=== PATIENT | male | born 1945 | race Hispanic/Latino ===

== ENCOUNTER 2019-10-17 08:03 | Outpatient (CLI) | payer MEDICARE, MEDICAID ==
--- NOTE | 2019-10-17 09:30 | ULT ---
ULTRASOUND ABDOMEN: Date: 10/17/2019 HISTORY: Abdominal pain, hepatomegaly. FINDINGS: The liver measures 13.5 cm in length with increased echogenicity consistent with fatty infiltration. No focal mass or abnormal biliary ductal dilatation is seen. The patient is post cholecystectomy. The common duct measures 5.0 mm in diameter. The spleen, left kidney, and visualized portions of the hurt creas, aorta, and IVC are unremarkable. There is a 2.1 x 1.9 x 1.7 cm echogenic mass arising from the superior medial aspect of the right kidney. No free fluid is seen. IMPRESSION: 1. Fatty liver. 2. Right renal mass. Further evaluation with a CT scan of the abdomen and pelvis (with and without I V contrast using renal mass protocol) is recommended. POS: [facility]
== END 2019-10-17 08:04 | disposition home or self-care (01) ==
LOC: BICULT 08:03
PROVIDERS: ATTEND Family Medicine
DX: R10.9 Unspecified abdominal pain (principal); R16.0 Hepatomegaly, not elsewhere classified; N28.89 Other specified disorders of kidney and ureter; K76.0 Fatty (change of) liver, not elsewhere classified
CPT/HCPCS: 93975

== ENCOUNTER 2019-11-28 12:52 | Outpatient (CLI) | payer MEDICARE, MEDICAID ==
[~2019-11-28 12:52] MED LIST: Iopamidol-370 76% 500 ML 1 ML ONE
[2019-11-28 13:32] LABS: Estimated GFR-MDRD - POC Greater than 90
--- NOTE | 2019-11-28 20:55 | CT ---
CT ABDOMEN AND PELVIS WITH AND WITHOUT CONTRAST: 11/28/19 Postcontrast images were obtained in the portal venous phase and delayed venous phase. INDICATION: Right renal mass. COMPARISON: Comparison made to ultrasound exam of 10/17/19. That exam revealed a hyperechoic mass superior right k idney. FINDINGS: Review of kidneys in all phases shows an exophytic mass arising from the superolateral right kidney. This mass measures up to 2 cm. It does exhibit diffuse enhancement and is suspicious for neoplasm. There is a low density mass in the medial right renal cortex measuring approximately 1.0 cm more cons istent with a small cyst. There are at least two low density cystic lesions in the left kidney both measuring 1 to 1.5 cm. Ther e is a tiny low density focus in the medial left renal cortex which is subcentimeter and difficult to characterize but probably representing tiny cysts. No evidence of hydronephrosis. The collecting structures opacify on the delayed sequence and appear u nremarkable. Urinary bladder is mildly distended. There is mild urinary bladder wall thickening. Ther e is moderate prostatic hypertrophy which does impinge on the floor of the bladder. Lung bonilla are clear. Liver, spleen, and pancreas unremarkable. Stomach and duodenum unremarkable. Adrenal glands normal. Bowel loops unremarkable. Aorta shows atherosclerotic change. 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 No aneurysmal dilatation. Osseous structures unremarkable. IMPRESSION: 1. Suspicious enhancing mass involving the superolateral right kidney measuring 2.0 cm. 2. There are other low density lesions in both kidneys, most consistent with small cysts as desc ribed above. 3. Prostatic hypertrophy with nonspecific urinary bladder wall thickening. 4. Atherosclerotic changes involving the abdominal aorta without aneurysm. 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 This is filled with thrombus with no evidence of opacified false lumen. POS: [facility]
== END 2019-11-28 12:53 | disposition home or self-care (01) ==
LOC: BICCT 12:52
PROVIDERS: ATTEND Family Medicine
DX: N28.89 Other specified disorders of kidney and ureter (principal); N40.0 Benign prostatic hyperplasia without lower urinary tract symptoms; N32.89 Other specified disorders of bladder; I70.0 Atherosclerosis of aorta; I71.02 Dissection of abdominal aorta; N28.9 Disorder of kidney and ureter, unspecified
CPT/HCPCS: 74178; 82565; Q9967

== ENCOUNTER 2019-12-07 08:55 | Day surgery (SDC) | payer MEDICARE, MEDICAID ==
[2019-12-06 15:00] VITALS: BMI 24.7
[~2019-12-07 08:55] MED LIST changes: -Iopamidol-370 76% 500 ML 1 ML ONE; +Prevnar 13-Val Conj/PF 0.5 ML SYRINGE IM ONE
[2019-12-07 09:47] LABS: PTT 31.5 sec (22.9-36.1); Prothrombin Time 12.8 sec (12.0-14.7)
[2019-12-07] MEDS ORDERED: Midazolam HCl 2 mg/2 ml Vial ONE (10:43)
[2019-12-07] MEDS ORDERED: Fentanyl 100 MCG/2 ML VIAL ONE (10:43)
[2019-12-07] MEDS ORDERED: Sodium Bicarbonate 2.5 MEQ/5 ML VIAL ONE (10:44)
[2019-12-07 11:57] VITALS: BP 125/62; TEMP 97.8
--- NOTE | 2019-12-07 12:46 | CT ---
EXAM: CT Limited Exam PROVIDED CLINICAL HISTORY: Right renal mass. Biopsy of mass was requested. COMPARISON: CT abdomen and pelvis on 11/28/2019 FINDINGS: Patient presented for biopsy of a superior pole right renal mass. After the procedure including risks and complications were explained to the patient, the patient was placed on the CT scan table in the prone position with grid localizer in place. Limited noncontrasted CT images were obtained throug h the level of the right kidney. The mass in the superior pole right kidney is localized, but the posterior lung base overlies this region and precludes safe route of needle placement followed by of the superior pole right renal mass. The colon and liver are located laterally precluding biopsy from lateral approach. At this time, the procedure was terminated. These findings were discussed with the patient as well as the patient's daughter. Findings were also discussed with Dr. Gonzalez at this time. Remainder the findings within the abdomen were described on prior postcontrast CT exam. IMPRESSION: Superior pole right renal mass is localized. Overlying lung parenchyma posteriorly as well as liver a nd colon laterally preclude safe route of biopsy. Findings were discussed with the patient as well as Dr. Gonzalez postprocedure.
== END 2019-12-07 11:20 | disposition home or self-care (01) ==
LOC: CT 08:55
PROVIDERS: ATTEND Urology
DX: D41.01 Neoplasm of uncertain behavior of right kidney (principal); E11.9 Type 2 diabetes mellitus without complications; K21.9 Gastro-esophageal reflux disease without esophagitis; N40.0 Benign prostatic hyperplasia without lower urinary tract symptoms; E78.5 Hyperlipidemia, unspecified; Z53.8 Procedure and treatment not carried out for other reasons; Z87.891 Personal history of nicotine dependence; Z79.4 Long term (current) use of insulin; Z79.899 Other long term (current) drug therapy; Z98.84 Bariatric surgery status
CPT/HCPCS: 36415; 36416; 76380; 85610; 85730; J2250; J3010

== ENCOUNTER 2020-06-06 08:04 | Outpatient (CLI) | payer MEDICARE, MEDICAID ==
[2020-06-06 08:31] LABS: Estimated GFR-MDRD - POC Greater than 90
[2020-06-06] MEDS ORDERED: Iopamidol 370 76% 100 ML VIAL ONE (13:10)
== END 2020-06-06 08:05 | disposition home or self-care (01) ==
LOC: BICCT 08:04
PROVIDERS: ATTEND Urology
DX: D41.01 Neoplasm of uncertain behavior of right kidney (principal)
CPT/HCPCS: 74170; 82565; Q9967

== ENCOUNTER 2020-10-25 12:06 | Emergency (ER) | payer MEDICARE, MEDICAID ==
[~2020-10-25 12:06] MED LIST changes: +Iopamidol-370 76% 500 ML 1 ML ONE; -Prevnar 13-Val Conj/PF 0.5 ML SYRINGE IM ONE
[2020-10-25] MEDS ORDERED: Ondansetron ODT 4 MG TAB ONE (13:19)
[2020-10-25 13:33] LABS: #Lymphocytes 1.6 thou/uL (1.20-3.40); #Monocytes 0.6 thou/uL (0.11-0.59); #Neutrophils 7.2 thou/uL (1.40-6.50); %Basophils 0.1 % (0.0-1.0); %Eosinophils 0.3 % (0.0-10.0); %Lymphocytes 17.1 % (21.0-51.0); %Monocytes 6.2 % (0.0-10.0); %Neutrophils 76.3 % (42.0-75.0); Hemoglobin 14.4 g/dL (14.0-18.0); Mean Corpuscular HGB CONC 34.6 g/dL (32.0-36.0); Mean Corpuscular Hemoglobin 33.7 pg (27.0-31.0); Mean Corpuscular Volume 97.3 fL (78.0-98.0); Mean Platelet Volume 7.2 fL (7.4-10.4); Platelet Count 286 thou/uL (130-400); RBC Distribution Width 13.2 % (11.5-14.5); Red Blood Cell (RBC) Count 4.28 mill/uL (4.70-6.10); White Blood Cell (WBC) Count 9.4 thou/uL (4.8-10.8)
[2020-10-25 13:49] LABS: ALT (SGPT) 22 U/L (8-55); AST (SGOT) 16 U/L (5-34); Albumin 3.9 g/dL (3.4-4.8); Alkaline Phosphatase 119 U/L (40-110); Anion Gap 16 mmol/L (10-20); BUN (Urea Nitrogen) 15 mg/dL (8.4-25.7); Bilirubin, Total 1.2 mg/dL (0.2-1.2); Calc. Creatinine Clearance 0 mL/min (70-130); Carbon Dioxide 23 mmol/L (23-31); Chloride 101 mmol/L (98-107); Globulin 2.6 g/dL (2.4-3.5); Glucose 290 mg/dL (83-110); Lipase 12 U/L (8-78); Potassium 5.1 mmol/L (3.5-5.1); Protein, Total 6.5 g/dL (5.8-8.1); Sodium 135 mmol/L (136-145)
[2020-10-25] MEDS ORDERED: Lidocaine Viscous Sol 2% 15 ml UD Cup ONE (16:36)
[2020-10-25] MEDS ORDERED: Mag-Al 1200 mg/1200 mg/30 ML UDCUP ONE (16:36)
== END 2020-10-25 18:29 | disposition home or self-care (01) ==
LOC: ERS 12:06
DX: K20.90 Esophagitis, unspecified without bleeding (principal); E11.9 Type 2 diabetes mellitus without complications; F17.290 Nicotine dependence, other tobacco product, uncomplicated
CPT/HCPCS: 36415; 74177; 80053; 82010; 83690; 84484; 85025; 93005; Q0162; Q9967

== ENCOUNTER 2020-10-25 23:53 | Emergency (ER) | payer MEDICARE, MEDICAID ==
[2020-10-26] MEDS ORDERED: Ondansetron ODT 4 MG TAB ONE (00:18)
[2020-10-26] MEDS ORDERED: Lidocaine Viscous Sol 2% 15 ml UD Cup ONE (00:20)
[2020-10-26] MEDS ORDERED: Mag-Al 1200 mg/1200 mg/30 ML UDCUP ONE (00:20)
[2020-10-26] MEDS ORDERED: Famotidine 20 MG TAB ONE (00:41)
[2020-10-26] MEDS ORDERED: Ondansetron PF 4 MG/2 ML Vial ONE (01:34)
[2020-10-26] MEDS ORDERED: Morphine 2 MG/ML VIAL ONE (01:56)
[2020-10-26 02:23] LABS: #Lymphocytes 2.2 thou/uL (1.20-3.40); #Monocytes 1.1 thou/uL (0.11-0.59); #Neutrophils 8.5 thou/uL (1.40-6.50); %Basophils 0.3 % (0.0-1.0); %Eosinophils 0.3 % (0.0-10.0); %Lymphocytes 18.4 % (21.0-51.0); Hemoglobin 14.5 g/dL (14.0-18.0); Mean Corpuscular Hemoglobin 32.7 pg (27.0-31.0); Mean Corpuscular Volume 96.2 fL (78.0-98.0); Mean Platelet Volume 7.2 fL (7.4-10.4); Platelet Count 280 thou/uL (130-400); Red Blood Cell (RBC) Count 4.43 mill/uL (4.70-6.10); White Blood Cell (WBC) Count 11.8 thou/uL (4.8-10.8)
[2020-10-26 03:06] LABS: ALT (SGPT) 22 U/L (8-55); AST (SGOT) 15 U/L (5-34); Albumin 3.7 g/dL (3.4-4.8); Alkaline Phosphatase 121 U/L (40-110); Anion Gap 16 mmol/L (10-20); BUN (Urea Nitrogen) 17 mg/dL (8.4-25.7); Bilirubin, Total 1.5 mg/dL (0.2-1.2); Calc. Creatinine Clearance 0 mL/min (70-130); Calcium 8.9 mg/dL (7.8-10.44); Carbon Dioxide 29 mmol/L (23-31); Chloride 96 mmol/L (98-107); Globulin 2.7 g/dL (2.4-3.5); Glucose 214 mg/dL (83-110); Potassium 4.1 mmol/L (3.5-5.1); Protein, Total 6.4 g/dL (5.8-8.1); Sodium 137 mmol/L (136-145)
== END 2020-10-26 03:25 | disposition home or self-care (01) ==
LOC: ERS 23:53
DX: R10.13 Epigastric pain (principal); R11.2 Nausea with vomiting, unspecified; E11.9 Type 2 diabetes mellitus without complications; F17.290 Nicotine dependence, other tobacco product, uncomplicated; Z79.899 Other long term (current) drug therapy; K20.90 Esophagitis, unspecified without bleeding
CPT/HCPCS: 71045; 74177; 80053; 82010; 83690; 84484; 85025; 93005 ×2; 96372; 96374; 96375; 99284; J2270; 36415; J0500; J2405; Q0162; Q9967

== ENCOUNTER 2020-12-02 10:46 | Inpatient (IN) | payer MEDICARE, MEDICAID ==
[2020-12-02 11:47] LABS: ALT (SGPT) 20 U/L (8-55); AST (SGOT) 24 U/L (5-34); Albumin 2.6 g/dL (3.4-4.8); Alkaline Phosphatase 67 U/L (40-110); Anion Gap 13 mmol/L (10-20); BUN (Urea Nitrogen) 21 mg/dL (8.4-25.7); Bilirubin, Total 1.5 mg/dL (0.2-1.2); Calc. Creatinine Clearance 0 mL/min (70-130); Carbon Dioxide 19 mmol/L (23-31); Chloride 109 mmol/L (98-107); Globulin 2.2 g/dL (2.4-3.5); Glucose 133 mg/dL (83-110); Potassium 3.6 mmol/L (3.5-5.1); Protein, Total 4.8 g/dL (5.8-8.1); Sodium 137 mmol/L (136-145)
[2020-12-02 12:03] LABS: SARS-CoV-2 NAA Rapid Test Not Detected (NotDetected)
[2020-12-02 12:07] LABS: Band 39 % (5-11); Hemoglobin 10.3 g/dL (14.0-18.0); Lymphocytes 14 % (21-51); MDiff Complete? YES; Mean Corpuscular HGB CONC 34.3 g/dL (32.0-36.0); Mean Corpuscular Hemoglobin 34.3 pg (27.0-31.0); Mean Platelet Volume 7.3 fL (7.4-10.4); Metamyelocyte 12 % (0-0); Monocytes 7 % (0-10); Neutrophil 28 % (42-75); Platelet Count 248 thou/uL (130-400); Platelet Morphology Comment Appears Adequate; Polychromasia SLIGHT = 2-3 cells (100X) (0-2/hpf); RBC Distribution Width 15.1 % (11.5-14.5); Red Blood Cell (RBC) Count 3.01 mill/uL (4.70-6.10); Vacuoles SLIGHT; White Blood Cell (WBC) Count 9.3 thou/uL (4.8-10.8)
[2020-12-02] MEDS ORDERED: cefTRIAXone\\ROCEPHIN 2 GM VIAL ONE (12:09)
[2020-12-02] MEDS ORDERED: Vancomycin 1 GM/200 ML BAG ONE (13:23)
[2020-12-02] MEDS ORDERED: Norepinephrine 8 MG/0.9% NS 250 ML ONE ×2 (14:27→21:22)
[2020-12-02] MEDS ORDERED: Ondansetron PF 4 MG/2 ML Vial IVP PRN (15:24)
[2020-12-02] MEDS ORDERED: Acetaminophen 325 MG TAB PO PRN (15:24)
[2020-12-02] MEDS ORDERED: Dextrose 50% Abboject 50 ML SYRINGE SLOW IVP PRN (15:28)
[2020-12-02] MEDS ORDERED: Dextrose 5% in Water 1,000 ML IV PRN (15:28)
[2020-12-02 15:29] LABS: Lactic Acid 7.5 mmol/L (0.5-2.2)
[2020-12-02 15:31] LABS: Troponin I Less than 0.010 ng/mL (< 0.028)
[2020-12-02] MEDS ORDERED: CEFEPIME IVPB PRN (16:14)
[2020-12-02] MEDS ORDERED: Azithromycin 500 MG in Sodium Chloride 0.9% 250 ML 250 ML IVPB SCH (17:00)
[2020-12-02] MEDS ORDERED: Cefepime 2 GM in Sodium Chloride 0.9% 100 ML IVPB SCH (18:00)
[2020-12-02 18:40] LABS: Troponin I 0.055 ng/mL (< 0.028)
[2020-12-02] MEDS ORDERED: Norepinephrine 4 MG/4 ML VIAL ONE (21:17)
[2020-12-02 21:49] LABS: Troponin I 0.166 ng/mL (< 0.028)
[2020-12-02] MEDS: Lantus 1000 UNITS/10 ML VIAL SC SCH (23:01)
[2020-12-02] MEDS: Simvastatin 5 MG TAB PO SCH (23:02)
[2020-12-03] MEDS: Sodium Chloride 0.9% 1,000 ML IV SCH ×3 (04:04→10:35)
[2020-12-03 04:31] LABS: Iron Binding Capacity, Total 159 mcg/dL (261-462)
[2020-12-03 04:34] LABS: ALT (SGPT) 19 U/L (8-55); AST (SGOT) 25 U/L (5-34); Albumin 2.6 g/dL (3.4-4.8); Alkaline Phosphatase 69 U/L (40-110); Anion Gap 14 mmol/L (10-20); BUN (Urea Nitrogen) 25 mg/dL (8.4-25.7); Bilirubin, Total 0.7 mg/dL (0.2-1.2); Calc. Creatinine Clearance 63 mL/min (70-130); Calcium 7.7 mg/dL (7.8-10.44); Carbon Dioxide 17 mmol/L (23-31); Chloride 109 mmol/L (98-107); Globulin 2.5 g/dL (2.4-3.5); Glucose 224 mg/dL (83-110); Iron Less than 8 ug/dL (65-175); Iron Binding Capacity, Total 158 mcg/dL (261-462); Protein, Total 5.1 g/dL (5.8-8.1); Sodium 136 mmol/L (136-145)
[2020-12-03] MEDS: Cefepime 2 GM in Sodium Chloride 0.9% 100 ML IVPB SCH ×2 (04:49→04:50)
[2020-12-03 04:55] LABS: Hemoglobin 10.9 g/dL (14.0-18.0); Mean Corpuscular HGB CONC 34.2 g/dL (32.0-36.0); Mean Corpuscular Hemoglobin 34.2 pg (27.0-31.0); Mean Corpuscular Volume 99.9 fL (78.0-98.0); Mean Platelet Volume 7.7 fL (7.4-10.4); Platelet Count 244 thou/uL (130-400); RBC Distribution Width 15.3 % (11.5-14.5); Red Blood Cell (RBC) Count 3.17 mill/uL (4.70-6.10); White Blood Cell (WBC) Count 32.4 thou/uL (4.8-10.8)
[2020-12-03] MEDS: Norepinephrine 8 MG/0.9% NS 250 ML IVPB SCH ×2 (05:46→11:57)
[2020-12-03] MEDS ORDERED: Azithromycin 500 MG in Sodium Chloride 0.9% 250 ML 250 ML IVPB SCH (06:00)
[2020-12-03 06:27] LABS: Anisocytosis SLIGHT = 6-15 cells (100X) (0-5/hpf); Band 37 % (5-11); Lymphocytes 8 % (21-51); MDiff Complete? YES; Metamyelocyte 21 % (0-0); Monocytes 4 % (0-10); Myelocyte 13 % (0-0); Neutrophil 17 % (42-75)
[2020-12-03 06:30] LABS: Iron Less than 8 ug/dL (65-175)
[2020-12-03] MEDS: Enoxaparin Sodium 40 MG/0.4 ML SYRINGE SC SCH (09:45)
[2020-12-03] MEDS: HumaLOG 300 UNITS/3 ML VIAL SC PRN ×4 (09:48→20:14)
[2020-12-03] MEDS: Lantus 1000 UNITS/10 ML VIAL SC SCH ×2 (09:49→20:15)
[2020-12-03] MEDS: Linezolid 600 MG in Premix Bag 1 BAG IVPB SCH ×2 (10:34→20:14)
[2020-12-03] MEDS: methylPREDNISolone Sod Succ 40 MG VIAL IVP SCH ×2 (11:56→17:11)
[2020-12-03] MEDS ORDERED: Vancomycin 1 GM in Premix Bag 1 BAG IVPB SCH (13:00)
[2020-12-03] MEDS: Simvastatin 5 MG TAB PO SCH (20:14)
[2020-12-04] MEDS: methylPREDNISolone Sod Succ 40 MG VIAL IVP SCH ×4 (00:04→19:12)
[2020-12-04] MEDS: Cefepime 2 GM in Sodium Chloride 0.9% 100 ML IVPB SCH (05:07)
[2020-12-04 06:06] LABS: ALT (SGPT) 16 U/L (8-55); AST (SGOT) 22 U/L (5-34); Albumin 2.6 g/dL (3.4-4.8); Alkaline Phosphatase 76 U/L (40-110); Anion Gap 13 mmol/L (10-20); BUN (Urea Nitrogen) 13 mg/dL (8.4-25.7); Bilirubin, Total 0.9 mg/dL (0.2-1.2); Calc. Creatinine Clearance 87 mL/min (70-130); Calcium 7.7 mg/dL (7.8-10.44); Carbon Dioxide 18 mmol/L (23-31); Chloride 109 mmol/L (98-107); Globulin 2.4 g/dL (2.4-3.5); Glucose 230 mg/dL (83-110); Potassium 3.3 mmol/L (3.5-5.1); Sodium 137 mmol/L (136-145)
[2020-12-04] MEDS: HumaLOG 300 UNITS/3 ML VIAL SC PRN ×4 (06:09→20:09)
[2020-12-04 06:12] LABS: Hemoglobin 9.1 g/dL (14.0-18.0); Mean Corpuscular HGB CONC 32.8 g/dL (32.0-36.0); Mean Corpuscular Hemoglobin 32.5 pg (27.0-31.0); Mean Corpuscular Volume 98.9 fL (78.0-98.0); Mean Platelet Volume 7.5 fL (7.4-10.4); Platelet Count 168 thou/uL (130-400); RBC Distribution Width 15.4 % (11.5-14.5); White Blood Cell (WBC) Count 30.4 thou/uL (4.8-10.8)
[2020-12-04 06:38] LABS: Band 51 % (5-11); Lymphocytes 2 % (21-51); MDiff Complete? YES; Neutrophil 47 % (42-75); Platelet Morphology Comment Appears Adequate; Polychromasia SLIGHT = 2-3 cells (100X) (0-2/hpf)
[2020-12-04] MEDS ORDERED: Potassium Chloride 20 MEQ TAB PO SCH (08:30)
[2020-12-04] MEDS: Enoxaparin Sodium 40 MG/0.4 ML SYRINGE SC SCH (08:53)
[2020-12-04] MEDS: Folic Acid 1 MG TAB PO SCH (08:54)
[2020-12-04] MEDS: Lantus 1000 UNITS/10 ML VIAL SC SCH ×2 (08:56→20:08)
[2020-12-04] MEDS: Linezolid 600 MG in Premix Bag 1 BAG IVPB SCH ×2 (08:56→20:08)
[2020-12-04 11:52] LABS: SARS-CoV-2 NAA Rapid Test Not Detected (NotDetected)
[2020-12-04] MEDS: Simvastatin 5 MG TAB PO SCH (20:08)
[2020-12-05] MEDS: methylPREDNISolone Sod Succ 40 MG VIAL IVP SCH ×5 (00:26→21:42)
[2020-12-05] MEDS: HumaLOG 300 UNITS/3 ML VIAL SC PRN ×4 (05:17→22:11)
[2020-12-05] MEDS: Cefepime 2 GM in Sodium Chloride 0.9% 100 ML IVPB SCH ×2 (05:17→17:14)
[2020-12-05 05:28] LABS: Hemoglobin 10.6 g/dL (14.0-18.0); Mean Corpuscular HGB CONC 34.5 g/dL (32.0-36.0); Mean Corpuscular Hemoglobin 33.5 pg (27.0-31.0); Mean Corpuscular Volume 97.1 fL (78.0-98.0); Mean Platelet Volume 7.8 fL (7.4-10.4); Platelet Count 184 thou/uL (130-400); RBC Distribution Width 15.1 % (11.5-14.5); Red Blood Cell (RBC) Count 3.17 mill/uL (4.70-6.10)
[2020-12-05 05:50] LABS: ALT (SGPT) 18 U/L (8-55); AST (SGOT) 20 U/L (5-34); Albumin 2.8 g/dL (3.4-4.8); Alkaline Phosphatase 102 U/L (40-110); Anion Gap 10 mmol/L (10-20); BUN (Urea Nitrogen) 12 mg/dL (8.4-25.7); Calc. Creatinine Clearance 93 mL/min (70-130); Calcium 8.4 mg/dL (7.8-10.44); Carbon Dioxide 25 mmol/L (23-31); Chloride 108 mmol/L (98-107); Globulin 2.8 g/dL (2.4-3.5); Glucose 193 mg/dL (83-110); Protein, Total 5.6 g/dL (5.8-8.1); Sodium 140 mmol/L (136-145)
[2020-12-05 07:18] LABS: Band 17 % (5-11); Lymphocytes 2 % (21-51); MDiff Complete? YES; Monocytes 1 % (0-10); Neutrophil 80 % (42-75); Platelet Morphology Comment Appears Adequate; Polychromasia SLIGHT = 2-3 cells (100X) (0-2/hpf)
[2020-12-05] MEDS: Enoxaparin Sodium 40 MG/0.4 ML SYRINGE SC SCH (08:57)
[2020-12-05] MEDS: Lantus 1000 UNITS/10 ML VIAL SC SCH ×2 (08:58→21:42)
[2020-12-05] MEDS: Folic Acid 1 MG TAB PO SCH (08:58)
[2020-12-05] MEDS: Linezolid 600 MG in Premix Bag 1 BAG IVPB SCH ×2 (08:58→21:41)
[2020-12-05] MEDS: Potassium Chloride 20 MEQ TAB PO SCH ×2 (09:00→12:36)
[2020-12-05] MEDS ORDERED: Furosemide 20 MG/2 ML VIAL SLOW IVP SCH ×2 (13:30→18:00)
[2020-12-05 15:35] LABS: Anion Gap 10 mmol/L (10-20); BUN (Urea Nitrogen) 13 mg/dL (8.4-25.7); Calc. Creatinine Clearance 95 mL/min (70-130); Calcium 8.6 mg/dL (7.8-10.44); Carbon Dioxide 26 mmol/L (23-31); Chloride 105 mmol/L (98-107); Glucose 179 mg/dL (83-110); Magnesium 1.4 mg/dL (1.6-2.6); Potassium 3.4 mmol/L (3.5-5.1); Sodium 138 mmol/L (136-145)
[2020-12-05] MEDS: Simvastatin 5 MG TAB PO SCH (21:42)
[2020-12-06] MEDS: Cefepime 2 GM in Sodium Chloride 0.9% 100 ML IVPB SCH (04:57)
[2020-12-06 05:09] LABS: Anion Gap 10 mmol/L (10-20); BUN (Urea Nitrogen) 17 mg/dL (8.4-25.7); Calc. Creatinine Clearance 84 mL/min (70-130); Calcium 8.2 mg/dL (7.8-10.44); Carbon Dioxide 27 mmol/L (23-31); Chloride 101 mmol/L (98-107); Glucose 282 mg/dL (83-110); Magnesium 1.3 mg/dL (1.6-2.6); Sodium 135 mmol/L (136-145)
[2020-12-06 05:13] LABS: Band 6 % (5-11); Hemoglobin 10.4 g/dL (14.0-18.0); Hypochromia SLIGHT = 6-15 cells (100X) (0-5/hpf); Lymphocytes 5 % (21-51); MDiff Complete? YES; Mean Corpuscular HGB CONC 36.4 g/dL (32.0-36.0); Mean Corpuscular Hemoglobin 35.1 pg (27.0-31.0); Mean Corpuscular Volume 96.3 fL (78.0-98.0); Mean Platelet Volume 8.1 fL (7.4-10.4); Monocytes 6 % (0-10); Neutrophil 83 % (42-75); Platelet Count 141 thou/uL (130-400); Platelet Morphology Comment Appears Adequate; RBC Distribution Width 15.5 % (11.5-14.5); Red Blood Cell (RBC) Count 2.98 mill/uL (4.70-6.10); White Blood Cell (WBC) Count 7.8 thou/uL (4.8-10.8)
[2020-12-06 05:15] LABS: Potassium 2.9 mmol/L (3.5-5.1)
[2020-12-06] MEDS ORDERED: Electrolyte Replacement Protocol FS PRN (05:30)
[2020-12-06] MEDS: Potassium Chloride 40 MEQ in Premix Bag 1 BAG IVPB SCH ×2 (05:33→10:07)
[2020-12-06] MEDS ORDERED: Magnesium Sulfate 4 GM in Sodium Chloride 0.9% 250 ML 250 ML IVPB SCH (06:00)
[2020-12-06] MEDS ORDERED: Furosemide 20 MG/2 ML VIAL SLOW IVP SCH (06:00)
[2020-12-06] MEDS: HumaLOG 300 UNITS/3 ML VIAL SC PRN ×4 (06:29→20:12)
[2020-12-06 06:43] VITALS: BMI 16.5
[2020-12-06] MEDS: Enoxaparin Sodium 40 MG/0.4 ML SYRINGE SC SCH (10:02)
[2020-12-06] MEDS: Linezolid 600 MG in Premix Bag 1 BAG IVPB SCH ×2 (10:03→20:08)
[2020-12-06] MEDS: Folic Acid 1 MG TAB PO SCH (10:05)
[2020-12-06] MEDS: Lantus 1000 UNITS/10 ML VIAL SC SCH ×2 (10:06→20:09)
[2020-12-06] MEDS: methylPREDNISolone Sod Succ 40 MG VIAL IVP SCH ×2 (10:07→20:09)
[2020-12-06 14:03] LABS: Anion Gap 14 mmol/L (10-20); BUN (Urea Nitrogen) 18 mg/dL (8.4-25.7); Calc. Creatinine Clearance 85 mL/min (70-130); Calcium 8.7 mg/dL (7.8-10.44); Carbon Dioxide 27 mmol/L (23-31); Chloride 101 mmol/L (98-107); Glucose 233 mg/dL (83-110); Potassium 4.1 mmol/L (3.5-5.1); Sodium 138 mmol/L (136-145)
[2020-12-06] MEDS ORDERED: Furosemide 20 MG TAB PO SCH (17:15)
[2020-12-06] MEDS: Simvastatin 5 MG TAB PO SCH (20:09)
[2020-12-06] MEDS ORDERED: Magnesium 2 GM/50 ML 2 GM in Premix Bag 1 BAG IVPB SCH (20:15)
[2020-12-07 04:49] LABS: #Lymphocytes 0.6 thou/uL (1.20-3.40); #Monocytes 0.3 thou/uL (0.11-0.59); #Neutrophils 3.7 thou/uL (1.40-6.50); %Lymphocytes 12.1 % (21.0-51.0); %Monocytes 6.6 % (0.0-10.0); %Neutrophils 81.2 % (42.0-75.0); Hemoglobin 10.4 g/dL (14.0-18.0); Mean Corpuscular HGB CONC 35.8 g/dL (32.0-36.0); Mean Corpuscular Hemoglobin 34.4 pg (27.0-31.0); Mean Platelet Volume 8.3 fL (7.4-10.4); Platelet Count 137 thou/uL (130-400); RBC Distribution Width 15.2 % (11.5-14.5); Red Blood Cell (RBC) Count 3.01 mill/uL (4.70-6.10); White Blood Cell (WBC) Count 4.6 thou/uL (4.8-10.8)
[2020-12-07 05:16] LABS: ALT (SGPT) 14 U/L (8-55); AST (SGOT) 11 U/L (5-34); Albumin 2.6 g/dL (3.4-4.8); Alkaline Phosphatase 68 U/L (40-110); Anion Gap 11 mmol/L (10-20); BUN (Urea Nitrogen) 17 mg/dL (8.4-25.7); Bilirubin, Total 1.5 mg/dL (0.2-1.2); Calc. Creatinine Clearance 85 mL/min (70-130); Calcium 7.9 mg/dL (7.8-10.44); Carbon Dioxide 26 mmol/L (23-31); Chloride 100 mmol/L (98-107); Globulin 2.5 g/dL (2.4-3.5); Glucose 281 mg/dL (83-110); Magnesium 1.8 mg/dL (1.6-2.6); Potassium 3.4 mmol/L (3.5-5.1); Protein, Total 5.1 g/dL (5.8-8.1); Sodium 134 mmol/L (136-145)
[2020-12-07] MEDS: HumaLOG 300 UNITS/3 ML VIAL SC PRN ×3 (05:55→21:58)
[2020-12-07] MEDS ORDERED: Potassium Chloride 20 MEQ TAB PO SCH (06:15)
[2020-12-07] MEDS ORDERED: Magnesium 2 GM/50 ML 2 GM in Premix Bag 1 BAG IVPB SCH (06:15)
[2020-12-07] MEDS: Ferrous Sulfate 325 MG TAB PO SCH ×2 (09:04→17:55)
[2020-12-07] MEDS: Enoxaparin Sodium 40 MG/0.4 ML SYRINGE SC SCH (09:05)
[2020-12-07] MEDS: Folic Acid 1 MG TAB PO SCH (09:05)
[2020-12-07] MEDS: Furosemide 20 MG TAB PO SCH (09:06)
[2020-12-07] MEDS: Linezolid 600 MG in Premix Bag 1 BAG IVPB SCH ×2 (09:06→21:58)
[2020-12-07] MEDS: methylPREDNISolone Sod Succ 40 MG VIAL IVP SCH ×2 (09:06→21:58)
[2020-12-07] MEDS: Lantus 1000 UNITS/10 ML VIAL SC SCH ×2 (09:07→21:59)
[2020-12-07] MEDS: Simvastatin 5 MG TAB PO SCH (21:58)
[2020-12-07] MEDS: Bisacodyl 5 MG TAB PO PRN (22:03)
[2020-12-08 04:43] LABS: #Lymphocytes 0.6 thou/uL (1.20-3.40); #Monocytes 0.3 thou/uL (0.11-0.59); %Lymphocytes 12.2 % (21.0-51.0); %Monocytes 5.5 % (0.0-10.0); %Neutrophils 82.3 % (42.0-75.0); Hemoglobin 10.8 g/dL (14.0-18.0); Mean Corpuscular HGB CONC 35.5 g/dL (32.0-36.0); Mean Corpuscular Hemoglobin 34.5 pg (27.0-31.0); Mean Corpuscular Volume 97.3 fL (78.0-98.0); Mean Platelet Volume 8.2 fL (7.4-10.4); Platelet Count 144 thou/uL (130-400); Red Blood Cell (RBC) Count 3.12 mill/uL (4.70-6.10); White Blood Cell (WBC) Count 4.9 thou/uL (4.8-10.8)
[2020-12-08 05:01] LABS: Anion Gap 10 mmol/L (10-20); BUN (Urea Nitrogen) 17 mg/dL (8.4-25.7); Calc. Creatinine Clearance 88 mL/min (70-130); Calcium 8.4 mg/dL (7.8-10.44); Carbon Dioxide 26 mmol/L (23-31); Chloride 101 mmol/L (98-107); Glucose 189 mg/dL (83-110); Potassium 4.1 mmol/L (3.5-5.1); Sodium 133 mmol/L (136-145)
[2020-12-08] MEDS: HumaLOG 300 UNITS/3 ML VIAL SC PRN ×2 (06:05→17:13)
[2020-12-08] MEDS: Ferrous Sulfate 325 MG TAB PO SCH ×2 (09:13→17:08)
[2020-12-08] MEDS: Enoxaparin Sodium 40 MG/0.4 ML SYRINGE SC SCH (09:13)
[2020-12-08] MEDS: Folic Acid 1 MG TAB PO SCH (09:13)
[2020-12-08] MEDS: Linezolid 600 MG in Premix Bag 1 BAG IVPB SCH ×2 (09:14→20:39)
[2020-12-08] MEDS: Lantus 1000 UNITS/10 ML VIAL SC SCH ×2 (09:14→20:40)
[2020-12-08] MEDS: Furosemide 20 MG TAB PO SCH (09:14)
[2020-12-08] MEDS: methylPREDNISolone Sod Succ 40 MG VIAL IVP SCH ×2 (09:14→20:39)
[2020-12-08] MEDS: Bisacodyl 5 MG TAB PO PRN (20:39)
[2020-12-08] MEDS: Simvastatin 10 MG TAB PO SCH (20:39)
[2020-12-08] MEDS: Insulin Regular 300 UNITS/3 ML VIAL SC PRN (20:42)
[2020-12-09 05:12] LABS: #Monocytes 0.3 thou/uL (0.11-0.59); %Basophils 0.1 % (0.0-1.0); %Eosinophils 0.4 % (0.0-10.0); %Lymphocytes 18.8 % (21.0-51.0); %Monocytes 5.1 % (0.0-10.0); %Neutrophils 75.5 % (42.0-75.0); Hemoglobin 10.8 g/dL (14.0-18.0); Mean Corpuscular HGB CONC 35.1 g/dL (32.0-36.0); Mean Corpuscular Hemoglobin 34.2 pg (27.0-31.0); Mean Corpuscular Volume 97.5 fL (78.0-98.0); Mean Platelet Volume 8.1 fL (7.4-10.4); Platelet Count 141 thou/uL (130-400); Red Blood Cell (RBC) Count 3.15 mill/uL (4.70-6.10); White Blood Cell (WBC) Count 5.2 thou/uL (4.8-10.8)
[2020-12-09 05:33] LABS: Anion Gap 9 mmol/L (10-20); BUN (Urea Nitrogen) 17 mg/dL (8.4-25.7); Calc. Creatinine Clearance 84 mL/min (70-130); Calcium 8.6 mg/dL (7.8-10.44); Carbon Dioxide 27 mmol/L (23-31); Chloride 102 mmol/L (98-107); Glucose 312 mg/dL (83-110); Magnesium 1.4 mg/dL (1.6-2.6); Potassium 4.2 mmol/L (3.5-5.1); Sodium 134 mmol/L (136-145)
[2020-12-09] MEDS: Insulin Regular 300 UNITS/3 ML VIAL SC PRN ×4 (05:54→21:23)
[2020-12-09] MEDS ORDERED: Magnesium Sulfate 4 GM in Sodium Chloride 0.9% 250 ML 250 ML IVPB SCH (06:30)
[2020-12-09] MEDS: methylPREDNISolone Sod Succ 40 MG VIAL IVP SCH ×2 (09:19→21:22)
[2020-12-09] MEDS: Ferrous Sulfate 325 MG TAB PO SCH ×2 (09:20→16:32)
[2020-12-09] MEDS: Enoxaparin Sodium 40 MG/0.4 ML SYRINGE SC SCH (09:20)
[2020-12-09] MEDS: Folic Acid 1 MG TAB PO SCH (09:20)
[2020-12-09] MEDS: Linezolid 600 MG in Premix Bag 1 BAG IVPB SCH ×2 (09:20→21:22)
[2020-12-09] MEDS: Lantus 1000 UNITS/10 ML VIAL SC SCH ×2 (09:20→21:22)
[2020-12-09] MEDS: Bisacodyl 5 MG TAB PO PRN (16:32)
[2020-12-09] MEDS: Simvastatin 10 MG TAB PO SCH (21:23)
[2020-12-10 05:57] LABS: #Basophils 0.1 thou/uL (0.0-0.2); #Monocytes 0.3 thou/uL (0.11-0.59); #Neutrophils 6.3 thou/uL (1.40-6.50); %Basophils 1.2 % (0.0-1.0); %Eosinophils 0.1 % (0.0-10.0); %Lymphocytes 13.2 % (21.0-51.0); %Monocytes 3.6 % (0.0-10.0); %Neutrophils 81.9 % (42.0-75.0); Hemoglobin 11.7 g/dL (14.0-18.0); Mean Corpuscular HGB CONC 35.5 g/dL (32.0-36.0); Mean Corpuscular Hemoglobin 34.8 pg (27.0-31.0); Mean Corpuscular Volume 98.1 fL (78.0-98.0); Mean Platelet Volume 7.5 fL (7.4-10.4); Platelet Count 171 thou/uL (130-400); Red Blood Cell (RBC) Count 3.35 mill/uL (4.70-6.10); White Blood Cell (WBC) Count 7.6 thou/uL (4.8-10.8)
[2020-12-10 06:19] LABS: Anion Gap 11 mmol/L (10-20); BUN (Urea Nitrogen) 17 mg/dL (8.4-25.7); Calc. Creatinine Clearance 76 mL/min (70-130); Calcium 8.4 mg/dL (7.8-10.44); Carbon Dioxide 23 mmol/L (23-31); Chloride 101 mmol/L (98-107); Glucose 271 mg/dL (83-110); Potassium 4.7 mmol/L (3.5-5.1); Sodium 130 mmol/L (136-145)
[2020-12-10 06:20] LABS: Magnesium 1.6 mg/dL (1.6-2.6)
[2020-12-10] MEDS ORDERED: Magnesium 2 GM/50 ML 2 GM in Premix Bag 1 BAG IVPB SCH (06:30)
[2020-12-10] MEDS: Insulin Regular 300 UNITS/3 ML VIAL SC PRN ×3 (06:39→18:19)
[2020-12-10] MEDS: Ferrous Sulfate 325 MG TAB PO SCH ×2 (09:22→16:43)
[2020-12-10] MEDS: Lantus 1000 UNITS/10 ML VIAL SC SCH ×2 (09:23→20:17)
[2020-12-10] MEDS: Enoxaparin Sodium 40 MG/0.4 ML SYRINGE SC SCH (09:31)
[2020-12-10] MEDS: methylPREDNISolone Sod Succ 40 MG VIAL IVP SCH (09:32)
[2020-12-10] MEDS: Folic Acid 1 MG TAB PO SCH (12:25)
[2020-12-10] MEDS: Linezolid 600 MG in Premix Bag 1 BAG IVPB SCH (13:44)
[2020-12-10 13:56] LABS: SARS-CoV-2 PCR by NAA Not Detected (NotDetected)
[2020-12-10] MEDS ORDERED: Mineral Oil ENEMA PR SCH (16:15)
[2020-12-10] MEDS: Simvastatin 10 MG TAB PO SCH (21:20)
[2020-12-10] MEDS ORDERED: HumaLOG 300 UNITS/3 ML VIAL SC SCH (21:30)
[2020-12-11] MEDS: Enoxaparin Sodium 40 MG/0.4 ML SYRINGE SC SCH (07:42)
[2020-12-11] MEDS: Ferrous Sulfate 325 MG TAB PO SCH (07:42)
[2020-12-11] MEDS: Folic Acid 1 MG TAB PO SCH (07:42)
[2020-12-11] MEDS: Lantus 1000 UNITS/10 ML VIAL SC SCH (07:43)
[2020-12-11] MEDS ORDERED: predniSONE 20 MG TAB PO SCH (08:00)
[2020-12-11 09:05] VITALS: BP 98/55; TEMP 97.7
== END 2020-12-11 11:07 | disposition home or self-care (01) | DRG 871 ==
LOC: ERS 10:46 → ERHOLD 14:59 → CCU 23:42 → 2NO 12-06 21:02 → ONC 12-07 15:21
PROVIDERS: ADMIT Internal Medicine; ATTEND Internal Medicine
PROC: 3E043XZ Introduction of Vasopressor into Central Vein, Percutaneous Approach (ICD-10-PCS; principal; 2020-12-02)
PROC: 02HV33Z Insertion of Infusion Device into Superior Vena Cava, Percutaneous Approach (ICD-10-PCS; 2020-12-02)
PROC: B548ZZA Ultrasonography of Superior Vena Cava, Guidance (ICD-10-PCS; 2020-12-02)
DX: A41.9 Sepsis, unspecified organism (principal); R65.21 Severe sepsis with septic shock; J96.01 Acute respiratory failure with hypoxia; J18.9 Pneumonia, unspecified organism; I50.33 Acute on chronic diastolic (congestive) heart failure; Z20.822 Contact with and (suspected) exposure to COVID-19; E78.5 Hyperlipidemia, unspecified; D64.9 Anemia, unspecified; N28.89 Other specified disorders of kidney and ureter; I08.1 Rheumatic disorders of both mitral and tricuspid valves; R65.20 Severe sepsis without septic shock; E11.65 Type 2 diabetes mellitus with hyperglycemia; T38.0X5A Adverse effect of glucocorticoids and synthetic analogues, initial encounter; E86.0 Dehydration; Z79.899 Other long term (current) drug therapy; Z79.4 Long term (current) use of insulin; Z98.84 Bariatric surgery status; Z98.890 Other specified postprocedural states; Z87.891 Personal history of nicotine dependence; Z90.49 Acquired absence of other specified parts of digestive tract
CPT/HCPCS: 0240U; 36415; 36416; 36556; 71045; 80048; 80053; 82607; 82746; 83540; 83550; 83605; 83735; 83880; 84145; 84484; 85025; 87040; 93005; 93306; 94640; 96365; 96366; 99292; J0456; J0692; J0696; J1642; J1650; J1815; J1940; J1956; J2020; J2920; J3370; J3475; J3480; J3490; J7050; J7512; J7620; P9045; U0002; U0003; U0005

== ENCOUNTER 2020-12-13 10:43 | Inpatient (IN) | payer MEDICARE, MEDICAID ==
[2020-12-13] MEDS ORDERED: Iopamidol-370 76% 500 ML 1 ML ONE (11:24)
[2020-12-13 11:33] LABS: Mean Corpuscular HGB CONC 33.5 g/dL (32.0-36.0); Mean Corpuscular Hemoglobin 33.1 pg (27.0-31.0); Mean Corpuscular Volume 98.8 fL (78.0-98.0); Mean Platelet Volume 7.1 fL (7.4-10.4); Platelet Count 369 thou/uL (130-400); RBC Distribution Width 15.4 % (11.5-14.5); Red Blood Cell (RBC) Count 3.93 mill/uL (4.70-6.10)
[2020-12-13 11:54] LABS: ALT (SGPT) 31 U/L (8-55); AST (SGOT) 21 U/L (5-34); Albumin 3.3 g/dL (3.4-4.8); Alkaline Phosphatase 82 U/L (40-110); Anion Gap 14 mmol/L (10-20); BUN (Urea Nitrogen) 21 mg/dL (8.4-25.7); Bilirubin, Total 1.1 mg/dL (0.2-1.2); Calc. Creatinine Clearance 0 mL/min (70-130); Calcium 8.5 mg/dL (7.8-10.44); Carbon Dioxide 22 mmol/L (23-31); Chloride 100 mmol/L (98-107); Globulin 2.5 g/dL (2.4-3.5); Glucose 131 mg/dL (83-110); Potassium 4.5 mmol/L (3.5-5.1); Protein, Total 5.8 g/dL (5.8-8.1); Sodium 131 mmol/L (136-145)
[2020-12-13 11:57] LABS: Band 5 % (5-11); Lymphocytes 6 % (21-51); MDiff Complete? YES; Monocytes 6 % (0-10); Neutrophil 83 % (42-75); RBC Morphology Normal
[2020-12-13] MEDS ORDERED: Ondansetron PF 4 MG/2 ML Vial ONE (13:56)
[2020-12-13] MEDS ORDERED: Piperacillin/Tazobactam 3.375 GM VIAL ONE (13:56)
[2020-12-13] MEDS ORDERED: Morphine 4 MG/ML VIAL ONE (14:40)
[2020-12-13 15:01] LABS: Bilirubin Negative (Negative); Blood, Urine Negative (Negative); Clarity Clear (Clear); Glucose, Urine (Dipstick) Normal (Negative); Ketone, Urine 20 mg/dL (Negative); Leukocyte Negative Leu/uL (Negative); Nitrite Negative (Negative); Protein, Urine (Dipstick) 20 mg/dL (Neg-Trace); Specific Gravity, Urine 1.024 (1.002-1.036); Urobilinogen Normal mg/dL (Less than 2); pH, Urine 5.5 (5.0-9.0)
[2020-12-13 17:32] LABS: Troponin I 0.046 ng/mL (< 0.028)
[2020-12-13] MEDS ORDERED: Senokot S 8.6-50 MG TAB PO PRN (19:00)
[2020-12-13] MEDS ORDERED: hydrALAZINE 20 MG/ML VIAL SLOW IVP PRN (19:00)
[2020-12-13] MEDS ORDERED: Aspirin 81 mg Enteric Coated Tablet PO SCH (19:00)
[2020-12-13] MEDS ORDERED: Bisacodyl 5 MG TAB PO PRN (19:00)
[2020-12-13] MEDS ORDERED: Ondansetron PF 4 MG/2 ML Vial IVP PRN (19:00)
[2020-12-13] MEDS ORDERED: Magnesium Citrate 300 ML BOT PO SCH (19:00)
[2020-12-13] MEDS ORDERED: HumaLOG 300 UNITS/3 ML VIAL SC PRN ×2 (19:00)
[2020-12-13] MEDS ORDERED: Dextrose 50% Abboject 50 ML SYRINGE SLOW IVP PRN (19:00)
[2020-12-13] MEDS ORDERED: Polyethylene Glycol 3350 17 GM Packet PO PRN (19:00)
[2020-12-13] MEDS ORDERED: Ondansetron ODT 4 MG TAB PO PRN (19:00)
[2020-12-13] MEDS ORDERED: Dextrose 5% in Water 1,000 ML IV PRN (19:00)
[2020-12-13 20:01] LABS: Troponin I 0.043 ng/mL (< 0.028)
[2020-12-13] MEDS: Acetaminophen 500 MG TAB PO PRN (20:33)
[2020-12-13] MEDS: Sodium Chloride 0.9% 1,000 ML IV SCH (20:35)
[2020-12-13 21:09] VITALS: BMI 21.4
[2020-12-14] MEDS: Acetaminophen 500 MG TAB PO PRN (03:58)
[2020-12-14 04:34] LABS: #Eosinphils 0.1 thou/uL (0.0-0.7); #Lymphocytes 1.4 thou/uL (1.20-3.40); #Neutrophils 12.3 thou/uL (1.40-6.50); %Basophils 0.1 % (0.0-1.0); %Eosinophils 0.6 % (0.0-10.0); %Lymphocytes 9.7 % (21.0-51.0); %Monocytes 6.6 % (0.0-10.0); Hemoglobin 11.8 g/dL (14.0-18.0); Mean Corpuscular HGB CONC 34.3 g/dL (32.0-36.0); Mean Corpuscular Hemoglobin 34.3 pg (27.0-31.0); Mean Platelet Volume 7.2 fL (7.4-10.4); Platelet Count 298 thou/uL (130-400); RBC Distribution Width 15.7 % (11.5-14.5); Red Blood Cell (RBC) Count 3.43 mill/uL (4.70-6.10); White Blood Cell (WBC) Count 14.8 thou/uL (4.8-10.8)
[2020-12-14 04:55] LABS: ALT (SGPT) 22 U/L (8-55); AST (SGOT) 16 U/L (5-34); Alkaline Phosphatase 79 U/L (40-110); Anion Gap 12 mmol/L (10-20); BUN (Urea Nitrogen) 13 mg/dL (8.4-25.7); Bilirubin, Total 1.3 mg/dL (0.2-1.2); Calc. Creatinine Clearance 94 mL/min (70-130); Calcium 7.9 mg/dL (7.8-10.44); Carbon Dioxide 20 mmol/L (23-31); Chloride 103 mmol/L (98-107); Globulin 2.3 g/dL (2.4-3.5); Glucose 119 mg/dL (83-110); Lipase 37 U/L (8-78); Magnesium 1.7 mg/dL (1.6-2.6); Potassium 4.2 mmol/L (3.5-5.1); Protein, Total 5.3 g/dL (5.8-8.1); Sodium 131 mmol/L (136-145)
[2020-12-14] MEDS: Sodium Chloride 0.9% 1,000 ML IV SCH ×2 (05:33→15:28)
[2020-12-14] MEDS ORDERED: Magnesium Citrate 300 ML BOT PO SCH (10:45)
[2020-12-14] MEDS ORDERED: Bisacodyl 10 MG SUPP PR SCH (10:45)
[2020-12-14] MEDS: Aspirin 81 mg Enteric Coated Tablet PO SCH (10:47)
[2020-12-15] MEDS: Sodium Chloride 0.9% 1,000 ML IV SCH ×2 (01:51→12:18)
[2020-12-15] MEDS ORDERED: PROPOFOL 200 MG/20 ML VIAL ONE (10:26)
[2020-12-15] MEDS ORDERED: Lidocaine 1% PF 5 ML VIAL ONE (10:26)
[2020-12-15] MEDS: Aspirin 81 mg Enteric Coated Tablet PO SCH (11:43)
[2020-12-15] MEDS: Metoclopramide 10 MG/10 ML UDCUP PO SCH ×2 (17:37→20:05)
[2020-12-16 04:40] LABS: #Eosinphils 0.1 thou/uL (0.0-0.7); #Lymphocytes 1.7 thou/uL (1.20-3.40); #Monocytes 0.7 thou/uL (0.11-0.59); #Neutrophils 3.3 thou/uL (1.40-6.50); %Basophils 0.2 % (0.0-1.0); %Lymphocytes 29.4 % (21.0-51.0); %Monocytes 12.6 % (0.0-10.0); %Neutrophils 56.8 % (42.0-75.0); Hemoglobin 9.5 g/dL (14.0-18.0); Mean Corpuscular HGB CONC 34.1 g/dL (32.0-36.0); Mean Corpuscular Hemoglobin 34.1 pg (27.0-31.0); Mean Platelet Volume 6.9 fL (7.4-10.4); Platelet Count 272 thou/uL (130-400); RBC Distribution Width 15.8 % (11.5-14.5); Red Blood Cell (RBC) Count 2.78 mill/uL (4.70-6.10); White Blood Cell (WBC) Count 5.8 thou/uL (4.8-10.8)
[2020-12-16 04:59] LABS: Anion Gap 9 mmol/L (10-20); BUN (Urea Nitrogen) 8 mg/dL (8.4-25.7); Calc. Creatinine Clearance 96 mL/min (70-130); Calcium 7.6 mg/dL (7.8-10.44); Carbon Dioxide 24 mmol/L (23-31); Chloride 106 mmol/L (98-107); Glucose 146 mg/dL (83-110); Potassium 4.4 mmol/L (3.5-5.1); Sodium 135 mmol/L (136-145)
[2020-12-16] MEDS: Aspirin 81 mg Enteric Coated Tablet PO SCH (08:59)
[2020-12-16] MEDS: Metoclopramide 10 MG/10 ML UDCUP PO SCH ×3 (08:59→16:52)
[2020-12-16 16:12] VITALS: BP 112/62; TEMP 97.5
== END 2020-12-16 17:21 | disposition home or self-care (01) | DRG 74 ==
LOC: ERS 10:43 → 2NO 16:34
PROVIDERS: ADMIT Family Medicine; ATTEND Family Medicine
PROC: 0DB78ZX Excision of Stomach, Pylorus, Via Natural or Artificial Opening Endoscopic, Diagnostic (ICD-10-PCS; principal; 2020-12-15)
DX: E11.43 Type 2 diabetes mellitus with diabetic autonomic (poly)neuropathy (principal); K31.1 Adult hypertrophic pyloric stenosis; I50.32 Chronic diastolic (congestive) heart failure; E87.1 Hypo-osmolality and hyponatremia; I24.8 Other forms of acute ischemic heart disease; Z20.822 Contact with and (suspected) exposure to COVID-19; E78.5 Hyperlipidemia, unspecified; R21 Rash and other nonspecific skin eruption; K31.84 Gastroparesis; N28.89 Other specified disorders of kidney and ureter; F17.210 Nicotine dependence, cigarettes, uncomplicated; I11.0 Hypertensive heart disease with heart failure; R68.81 Early satiety; K59.00 Constipation, unspecified; K25.9 Gastric ulcer, unspecified as acute or chronic, without hemorrhage or perforation; Z93.1 Gastrostomy status
CPT/HCPCS: 36415; 36416; 71045; 71275; 74174; 80048; 80053; 81003; 82553; 83605; 83690; 83735; 83880; 84145; 84484; 85025; 87040; 87086; 88305; 88312; 88342; 93005; J1815; J2270; J2405; J2543; J2704; J7050; Q9967

== ENCOUNTER 2021-01-21 19:42 | Inpatient (IN) | payer MEDICARE, MEDICAID ==
[2021-01-21] MEDS ORDERED: Famotidine 20 MG TAB ONE (20:22)
[2021-01-21] MEDS ORDERED: Mag-Al 1200 mg/1200 mg/30 ML UDCUP ONE (20:22)
[2021-01-21] MEDS ORDERED: Lidocaine Viscous Sol 2% 15 ml UD Cup ONE (20:22)
[2021-01-21 20:26] LABS: #Lymphocytes 2.6 thou/uL (1.20-3.40); #Monocytes 0.6 thou/uL (0.11-0.59); #Neutrophils 5.9 thou/uL (1.40-6.50); %Basophils 0.4 % (0.0-1.0); %Eosinophils 0.5 % (0.0-10.0); %Lymphocytes 28.3 % (21.0-51.0); %Monocytes 6.2 % (0.0-10.0); %Neutrophils 64.6 % (42.0-75.0); Hemoglobin 11.4 g/dL (14.0-18.0); Mean Corpuscular HGB CONC 34.4 g/dL (32.0-36.0); Mean Corpuscular Hemoglobin 33.9 pg (27.0-31.0); Mean Corpuscular Volume 98.6 fL (78.0-98.0); Platelet Count 384 thou/uL (130-400); RBC Distribution Width 12.7 % (11.5-14.5); Red Blood Cell (RBC) Count 3.36 mill/uL (4.70-6.10); White Blood Cell (WBC) Count 9.2 thou/uL (4.8-10.8)
[2021-01-21 20:49] LABS: Bilirubin Negative (Negative); Blood, Urine Negative (Negative); Clarity Clear (Clear); Glucose, Urine (Dipstick) Normal (Negative); Ketone, Urine Negative (Negative); Leukocyte Negative Leu/uL (Negative); Nitrite Negative (Negative); Protein, Urine (Dipstick) Negative (Neg-Trace); Specific Gravity, Urine 1.007 (1.002-1.036); Urobilinogen Normal mg/dL (Less than 2)
[2021-01-21 20:51] LABS: ALT (SGPT) 10 U/L (8-55); AST (SGOT) 12 U/L (5-34); Albumin 3.9 g/dL (3.4-4.8); Alkaline Phosphatase 126 U/L (40-110); Anion Gap 16 mmol/L (10-20); BUN (Urea Nitrogen) 11 mg/dL (8.4-25.7); Bilirubin, Total 0.3 mg/dL (0.2-1.2); Calc. Creatinine Clearance 0 mL/min (70-130); Calcium 9.1 mg/dL (7.8-10.44); Carbon Dioxide 25 mmol/L (23-31); Chloride 95 mmol/L (98-107); Globulin 2.4 g/dL (2.4-3.5); Glucose 108 mg/dL (83-110); Potassium 4.5 mmol/L (3.5-5.1); Protein, Total 6.3 g/dL (5.8-8.1); Sodium 131 mmol/L (136-145)
[2021-01-21] MEDS ORDERED: Morphine 4 MG/ML VIAL ONE (21:45)
[2021-01-21] MEDS: Sodium Chloride 0.9% 1,000 ML IV SCH (23:31)
[2021-01-21 23:39] VITALS: BMI 20.2
[2021-01-22 00:07] LABS: SARS-CoV-2 NAA Rapid Test Not Detected (NotDetected)
[2021-01-22] MEDS: Morphine 4 MG/ML VIAL SLOW IVP PRN ×2 (00:26→08:01)
[2021-01-22] MEDS: Sodium Chloride 0.9% 1,000 ML IV SCH ×4 (07:57→21:16)
[2021-01-22] MEDS ORDERED: Ondansetron PF 4 MG/2 ML Vial IVP PRN (09:19)
[2021-01-22] MEDS ORDERED: Dextrose 5% in Water 1,000 ML IV PRN (09:19)
[2021-01-22] MEDS ORDERED: Dextrose 50% Abboject 50 ML SYRINGE SLOW IVP PRN (09:19)
[2021-01-22] MEDS ORDERED: hydrALAZINE 20 MG/ML VIAL SLOW IVP PRN (09:19)
[2021-01-22] MEDS ORDERED: Morphine 4 MG/ML VIAL SLOW IVP PRN (09:35)
[2021-01-22] MEDS: Famotidine/PF 20 mg/2ml Vial SLOW IVP SCH (21:14)
[2021-01-23 06:33] LABS: #Eosinphils 0.1 thou/uL (0.0-0.7); #Monocytes 0.5 thou/uL (0.11-0.59); #Neutrophils 2.5 thou/uL (1.40-6.50); %Basophils 0.6 % (0.0-1.0); %Eosinophils 1.1 % (0.0-10.0); %Lymphocytes 39.4 % (21.0-51.0); %Monocytes 9.6 % (0.0-10.0); %Neutrophils 49.3 % (42.0-75.0); Hemoglobin 9.8 g/dL (14.0-18.0); Mean Corpuscular HGB CONC 33.2 g/dL (32.0-36.0); Mean Corpuscular Hemoglobin 32.9 pg (27.0-31.0); Mean Corpuscular Volume 99.2 fL (78.0-98.0); Mean Platelet Volume 6.6 fL (7.4-10.4); Platelet Count 353 thou/uL (130-400); RBC Distribution Width 12.4 % (11.5-14.5); Red Blood Cell (RBC) Count 2.99 mill/uL (4.70-6.10)
[2021-01-23] MEDS: Sodium Chloride 0.9% 1,000 ML IV SCH (06:33)
[2021-01-23 06:40] LABS: Anion Gap 12 mmol/L (10-20); BUN (Urea Nitrogen) 7 mg/dL (8.4-25.7); Calc. Creatinine Clearance 98 mL/min (70-130); Calcium 7.8 mg/dL (7.8-10.44); Carbon Dioxide 21 mmol/L (23-31); Chloride 107 mmol/L (98-107); Glucose 65 mg/dL (83-110); Sodium 136 mmol/L (136-145)
[2021-01-23] MEDS: Famotidine/PF 20 mg/2ml Vial SLOW IVP SCH ×2 (08:51→20:53)
[2021-01-23] MEDS ORDERED: D5 LR w/20 mEq KCL 1,000 ML IV SCH (12:00)
[2021-01-23] MEDS ORDERED: cefOXitin Sodium/Dextrose 2 GM/50 ML BAG ONE (13:21)
[2021-01-23] MEDS ORDERED: Fentanyl 100 MCG/2 ML VIAL ONE ×2 (14:16→14:17)
[2021-01-23] MEDS ORDERED: Ketorolac Tromethamine 30 MG/ML VIAL ONE ×2 (14:20→18:03)
[2021-01-23] MEDS ORDERED: Calcium Chloride 1 GM/10 ML Abboject SYRINGE ONE (14:20)
[2021-01-23] MEDS ORDERED: Lidocaine 1% PF 5 ML VIAL ONE (14:20)
[2021-01-23] MEDS ORDERED: Ondansetron PF 4 MG/2 ML Vial ONE (14:20)
[2021-01-23] MEDS ORDERED: Glycopyrrolate 0.2 MG/ML 5 ML SYRINGE ONE (14:20)
[2021-01-23] MEDS ORDERED: Rocuronium Bromide 10 MG/ML (10ML VIAL) ONE (14:20)
[2021-01-23] MEDS ORDERED: Dexamethasone 20 MG/5 ML VIAL ONE (14:20)
[2021-01-23] MEDS ORDERED: Lidocaine 2% PF 5 ML VIAL ONE (14:20)
[2021-01-23] MEDS ORDERED: PROPOFOL 200 MG/20 ML VIAL ONE (14:20)
[2021-01-23] MEDS ORDERED: ePHEDrine 50 MG/ML VIAL ONE (14:20)
[2021-01-23] MEDS ORDERED: Albumin 25% 100 ML ONE (14:45)
[2021-01-23] MEDS ORDERED: diphenhydrAMINE 50 MG/ML VIAL IVP PRN (16:15)
[2021-01-23] MEDS ORDERED: Naloxone HCl 0.4 mg/ml Vial IV PRN (16:15)
[2021-01-23] MEDS ORDERED: Hydrocerin (Eucerin) Cream 120 gm Jar TOP PRN (16:15)
[2021-01-23] MEDS ORDERED: Promethazine HCl 25 MG SUPP PR PRN (16:15)
[2021-01-23] MEDS ORDERED: Promethazine HCl 25 MG/ML VIAL IM PRN (16:15)
[2021-01-23] MEDS ORDERED: HYDROcodone/Acetaminophen 5/325 mg Tablet PO PRN ×2 (16:15)
[2021-01-23] MEDS ORDERED: diphenhydrAMINE 50 MG/ML VIAL IM PRN (16:15)
[2021-01-23] MEDS ORDERED: Ondansetron PF 4 MG/2 ML Vial IVP PRN (16:15)
[2021-01-23] MEDS ORDERED: Naloxone HCl 0.4 mg/ml Vial IVP PRN (16:15)
[2021-01-23] MEDS ORDERED: Zolpidem Tartrate 5 MG TAB PO PRN (16:15)
[2021-01-23] MEDS ORDERED: traMADol HCl 50 MG TAB PO PRN ×2 (16:15)
[2021-01-23] MEDS ORDERED: diphenhydrAMINE 25 MG CAP PO PRN (16:15)
[2021-01-23] MEDS ORDERED: PHENYLEPHRINE-NS 100 MCG/ML 10 ML SYRINGE ONE (16:48)
[2021-01-23] MEDS: Ketorolac Tromethamine 30 MG/ML VIAL IVP SCH ×2 (18:04→23:51)
[2021-01-23 23:24] LABS: #Lymphocytes 0.5 thou/uL (1.20-3.40); #Monocytes 0.8 thou/uL (0.11-0.59); #Neutrophils 12.2 thou/uL (1.40-6.50); %Eosinophils 0.2 % (0.0-10.0); %Lymphocytes 3.7 % (21.0-51.0); %Monocytes 5.5 % (0.0-10.0); %Neutrophils 90.6 % (42.0-75.0); Hemoglobin 10.6 g/dL (14.0-18.0); Mean Corpuscular Hemoglobin 32.9 pg (27.0-31.0); Mean Corpuscular Volume 99.9 fL (78.0-98.0); Mean Platelet Volume 6.8 fL (7.4-10.4); Platelet Count 356 thou/uL (130-400); RBC Distribution Width 12.3 % (11.5-14.5); Red Blood Cell (RBC) Count 3.23 mill/uL (4.70-6.10); White Blood Cell (WBC) Count 13.5 thou/uL (4.8-10.8)
[2021-01-23 23:37] LABS: Anion Gap 18 mmol/L (10-20); BUN (Urea Nitrogen) 7 mg/dL (8.4-25.7); Calc. Creatinine Clearance 88 mL/min (70-130); Calcium 8.4 mg/dL (7.8-10.44); Carbon Dioxide 16 mmol/L (23-31); Chloride 106 mmol/L (98-107); Glucose 201 mg/dL (83-110); Potassium 4.9 mmol/L (3.5-5.1); Sodium 135 mmol/L (136-145)
[2021-01-24] MEDS: Ketorolac Tromethamine 30 MG/ML VIAL IVP SCH ×4 (05:51→23:37)
[2021-01-24] MEDS: Insulin Regular 300 UNITS/3 ML VIAL SC PRN ×2 (05:52→13:58)
[2021-01-24 05:57] LABS: #Lymphocytes 1.1 thou/uL (1.20-3.40); #Monocytes 0.7 thou/uL (0.11-0.59); #Neutrophils 8.8 thou/uL (1.40-6.50); %Basophils 0.1 % (0.0-1.0); %Lymphocytes 10.3 % (21.0-51.0); %Monocytes 6.5 % (0.0-10.0); Mean Corpuscular HGB CONC 33.6 g/dL (32.0-36.0); Mean Corpuscular Hemoglobin 33.9 pg (27.0-31.0); Mean Platelet Volume 6.9 fL (7.4-10.4); Platelet Count 335 thou/uL (130-400); RBC Distribution Width 12.3 % (11.5-14.5); Red Blood Cell (RBC) Count 2.93 mill/uL (4.70-6.10); White Blood Cell (WBC) Count 10.6 thou/uL (4.8-10.8)
[2021-01-24 06:23] LABS: Anion Gap 13 mmol/L (10-20); BUN (Urea Nitrogen) 8 mg/dL (8.4-25.7); Calc. Creatinine Clearance 79 mL/min (70-130); Calcium 8.2 mg/dL (7.8-10.44); Carbon Dioxide 23 mmol/L (23-31); Chloride 104 mmol/L (98-107); Glucose 249 mg/dL (83-110); Potassium 4.7 mmol/L (3.5-5.1); Sodium 135 mmol/L (136-145)
[2021-01-24] MEDS ORDERED: FLU VACC QS2021-22(65YR UP)/PF 240 MCG/0.7 ML SYRINGE IM ONE (09:00)
[2021-01-24] MEDS: Famotidine/PF 20 mg/2ml Vial SLOW IVP SCH ×2 (10:17→20:26)
[2021-01-24] MEDS ORDERED: Sodium Chloride 0.9% 1,000 ML IV SCH ×2 (14:45)
[2021-01-24] MEDS: Fentanyl 5 mcg/Bup 0.075% Cadd 100 ML EPIDURAL SCH (18:35)
[2021-01-24 19:16] LABS: Anion Gap 15 mmol/L (10-20); BUN (Urea Nitrogen) 7 mg/dL (8.4-25.7); Calc. Creatinine Clearance 83 mL/min (70-130); Calcium 8.1 mg/dL (7.8-10.44); Carbon Dioxide 19 mmol/L (23-31); Chloride 109 mmol/L (98-107); Glucose 92 mg/dL (83-110); Potassium 4.2 mmol/L (3.5-5.1); Sodium 139 mmol/L (136-145)
[2021-01-25 05:54] LABS: #Lymphocytes 1.7 thou/uL (1.20-3.40); #Monocytes 0.5 thou/uL (0.11-0.59); #Neutrophils 3.1 thou/uL (1.40-6.50); %Basophils 0.3 % (0.0-1.0); %Eosinophils 0.7 % (0.0-10.0); %Lymphocytes 32.4 % (21.0-51.0); %Monocytes 8.7 % (0.0-10.0); %Neutrophils 57.9 % (42.0-75.0); Hemoglobin 8.6 g/dL (14.0-18.0); Mean Corpuscular HGB CONC 33.6 g/dL (32.0-36.0); Mean Corpuscular Hemoglobin 33.7 pg (27.0-31.0); Mean Platelet Volume 7.2 fL (7.4-10.4); Platelet Count 269 thou/uL (130-400); RBC Distribution Width 12.5 % (11.5-14.5); Red Blood Cell (RBC) Count 2.54 mill/uL (4.70-6.10); White Blood Cell (WBC) Count 5.3 thou/uL (4.8-10.8)
[2021-01-25] MEDS: Ketorolac Tromethamine 30 MG/ML VIAL IVP SCH ×2 (06:01→11:50)
[2021-01-25 06:22] LABS: Anion Gap 11 mmol/L (10-20); BUN (Urea Nitrogen) 7 mg/dL (8.4-25.7); Calc. Creatinine Clearance 90 mL/min (70-130); Calcium 7.8 mg/dL (7.8-10.44); Carbon Dioxide 21 mmol/L (23-31); Chloride 109 mmol/L (98-107); Glucose 115 mg/dL (83-110); Sodium 137 mmol/L (136-145)
[2021-01-25] MEDS: Famotidine/PF 20 mg/2ml Vial SLOW IVP SCH ×2 (08:36→19:20)
[2021-01-25] MEDS: Fentanyl 5 mcg/Bup 0.075% Cadd 100 ML EPIDURAL SCH (19:20)
[2021-01-26 05:02] LABS: #Eosinphils 0.1 thou/uL (0.0-0.7); #Lymphocytes 1.6 thou/uL (1.20-3.40); #Monocytes 0.5 thou/uL (0.11-0.59); #Neutrophils 2.9 thou/uL (1.40-6.50); %Basophils 0.5 % (0.0-1.0); %Eosinophils 1.3 % (0.0-10.0); %Lymphocytes 31.4 % (21.0-51.0); %Monocytes 9.8 % (0.0-10.0); %Neutrophils 56.9 % (42.0-75.0); Hemoglobin 9.2 g/dL (14.0-18.0); Mean Corpuscular HGB CONC 34.1 g/dL (32.0-36.0); Mean Corpuscular Hemoglobin 33.7 pg (27.0-31.0); Mean Corpuscular Volume 98.8 fL (78.0-98.0); Platelet Count 287 thou/uL (130-400); RBC Distribution Width 12.4 % (11.5-14.5); Red Blood Cell (RBC) Count 2.72 mill/uL (4.70-6.10); White Blood Cell (WBC) Count 5.1 thou/uL (4.8-10.8)
[2021-01-26 05:20] LABS: Anion Gap 11 mmol/L (10-20); BUN (Urea Nitrogen) 5 mg/dL (8.4-25.7); Calc. Creatinine Clearance 96 mL/min (70-130); Calcium 7.9 mg/dL (7.8-10.44); Carbon Dioxide 24 mmol/L (23-31); Chloride 108 mmol/L (98-107); Glucose 98 mg/dL (83-110); Magnesium 1.3 mg/dL (1.6-2.6); Phosphorus 3.4 mg/dL (2.3-4.7); Potassium 3.9 mmol/L (3.5-5.1); Sodium 139 mmol/L (136-145)
[2021-01-26] MEDS: Famotidine/PF 20 mg/2ml Vial SLOW IVP SCH ×2 (09:31→21:46)
[2021-01-26] MEDS ORDERED: traMADol HCl 50 MG TAB PO PRN ×2 (09:59)
[2021-01-26] MEDS: Acetaminophen 500 MG TAB PO SCH ×3 (10:29→21:46)
[2021-01-26] MEDS ORDERED: Magnesium 2 GM/50 ML 2 GM in Premix Bag 1 BAG IVPB SCH (12:00)
[2021-01-26] MEDS ORDERED: Potassium Phosphate 15 MMOL in Sodium Chloride 0.9% 250 ML 250 ML IVPB SCH (12:00)
[2021-01-26] MEDS: Ibuprofen 200 MG TAB PO SCH ×2 (14:44→21:45)
[2021-01-26] MEDS ORDERED: Enoxaparin Sodium 40 MG/0.4 ML SYRINGE SC SCH (21:00)
[2021-01-27] MEDS: Acetaminophen 500 MG TAB PO SCH ×2 (03:48→09:27)
[2021-01-27] MEDS: Ibuprofen 200 MG TAB PO SCH ×2 (05:57→13:57)
[2021-01-27] MEDS: Famotidine/PF 20 mg/2ml Vial SLOW IVP SCH (09:30)
[2021-01-27 12:00] VITALS: BP 148/85; TEMP 97.5
== END 2021-01-27 14:55 | disposition home or self-care (01) | DRG 330 ==
LOC: ERS 19:42 → SURG A 21:45
PROVIDERS: ADMIT Specialist; ATTEND Specialist
PROC: 0DB80ZZ Excision of Small Intestine, Open Approach (ICD-10-PCS; principal; 2021-01-23)
PROC: 0DWD0UZ Revision of Feeding Device in Lower Intestinal Tract, Open Approach (ICD-10-PCS; 2021-01-23)
DX: K91.89 Other postprocedural complications and disorders of digestive system (principal); K56.1 Intussusception; E87.2 Acidosis; Z20.822 Contact with and (suspected) exposure to COVID-19; K27.9 Peptic ulcer, site unspecified, unspecified as acute or chronic, without hemorrhage or perforation; Y83.8 Other surgical procedures as the cause of abnormal reaction of the patient, or of later complication, without mention of misadventure at the time of the procedure; N28.89 Other specified disorders of kidney and ureter; D64.9 Anemia, unspecified; E11.649 Type 2 diabetes mellitus with hypoglycemia without coma; Z87.891 Personal history of nicotine dependence; Z79.84 Long term (current) use of oral hypoglycemic drugs; Z79.4 Long term (current) use of insulin; Z79.899 Other long term (current) drug therapy; Z90.49 Acquired absence of other specified parts of digestive tract; Z98.890 Other specified postprocedural states; Z87.01 Personal history of pneumonia (recurrent)
CPT/HCPCS: 36415; 36416; 71045; 74177; 80048; 80053; 81003; 83735; 84100; 85025; 88307; 93005; 96374; J0694; J1100; J1650; J1815; J1885; J2001; J2270; J2405; J2704; J3010; J3475; J3480; J3490; J7050; P9047; Q9967; S0028; U0002

== ENCOUNTER 2021-03-12 08:05 | Outpatient (CLI) | payer MEDICARE, MEDICAID ==
[2021-03-12 08:41] LABS: Estimated GFR-MDRD - POC Greater than 90
== END 2021-03-12 08:06 | disposition home or self-care (01) ==
LOC: BICCT 08:05
PROVIDERS: ATTEND Urology
DX: D41.01 Neoplasm of uncertain behavior of right kidney (principal); N28.89 Other specified disorders of kidney and ureter
CPT/HCPCS: 74170; 82565

== ENCOUNTER 2021-10-09 11:02 | Emergency (ER) | payer MEDICARE, MEDICAID ==
[2021-10-09 12:28] LABS: #Lymphocytes 1.4 thou/uL (1.20-3.40); #Monocytes 0.5 thou/uL (0.11-0.59); #Neutrophils 2.9 thou/uL (1.40-6.50); %Basophils 0.5 % (0.0-1.0); %Eosinophils 0.4 % (0.0-10.0); %Lymphocytes 28.3 % (21.0-51.0); %Monocytes 10.3 % (0.0-10.0); %Neutrophils 60.5 % (42.0-75.0); Mean Corpuscular HGB CONC 31.8 g/dL (32.0-36.0); Mean Corpuscular Hemoglobin 27.1 pg (27.0-31.0); Mean Corpuscular Volume 85.2 fL (78.0-98.0); Mean Platelet Volume 6.4 fL (7.4-10.4); Platelet Count 383 thou/uL (130-400); RBC Distribution Width 16.1 % (11.5-14.5); Red Blood Cell (RBC) Count 4.07 mill/uL (4.70-6.10); White Blood Cell (WBC) Count 4.8 thou/uL (4.8-10.8)
[2021-10-09 12:48] LABS: ALT (SGPT) 9 U/L (8-55); AST (SGOT) 10 U/L (5-34); Albumin 2.9 g/dL (3.4-4.8); Alkaline Phosphatase 167 U/L (40-110); Anion Gap 14 mmol/L (10-20); BUN (Urea Nitrogen) 17 mg/dL (8.4-25.7); Bilirubin, Total 0.2 mg/dL (0.2-1.2); Calc. Creatinine Clearance 0 mL/min (70-130); Calcium 8.9 mg/dL (7.8-10.44); Carbon Dioxide 22 mmol/L (23-31); Chloride 101 mmol/L (98-107); Estimated GFR 104; Globulin 2.4 g/dL (2.4-3.5); Glucose 98 mg/dL (83-110); Lipase 8 U/L (8-78); Potassium 4.2 mmol/L (3.5-5.1); Protein, Total 5.3 g/dL (5.8-8.1); Sodium 133 mmol/L (136-145)
== END 2021-10-09 14:05 | disposition home or self-care (01) ==
LOC: ERS 11:02
DX: R13.10 Dysphagia, unspecified (principal); E11.9 Type 2 diabetes mellitus without complications; Z87.891 Personal history of nicotine dependence; Z79.84 Long term (current) use of oral hypoglycemic drugs; Z79.4 Long term (current) use of insulin
CPT/HCPCS: 36415; 71045; 80053; 83690; 84484; 85025; 93005; 94760

== ENCOUNTER 2021-10-20 14:42 | Outpatient (CLI) | payer MEDICARE, MEDICAID | END 2021-10-20 14:43 | disposition home or self-care (01) | LOC: BICULT 14:42 | PROVIDERS: ATTEND Urology | DX: N40.1 Benign prostatic hyperplasia with lower urinary tract symptoms (principal); N28.1 Cyst of kidney, acquired | CPT/HCPCS: 76770 ==

== ENCOUNTER 2021-10-27 10:13 | Outpatient (CLI) | payer MEDICARE, MEDICAID | END 2021-10-27 10:14 | disposition home or self-care (01) | LOC: LABBT 10:13 | PROVIDERS: ATTEND Internal Medicine Gastroenterology | DX: Z01.812 Encounter for preprocedural laboratory examination (principal); Z20.822 Contact with and (suspected) exposure to COVID-19 | CPT/HCPCS: 87811 ==

== ENCOUNTER 2021-10-30 06:12 | Day surgery (SDC) | payer MEDICARE, MEDICAID ==
[2021-10-29 11:18] VITALS: BMI 18.1
[2021-10-30] MEDS ORDERED: fentaNYL Citrate/PF 100 MCG/2 ML SYRINGE ONE (08:55)
[2021-10-30] MEDS ORDERED: PROPOFOL 200 MG/20 ML VIAL ONE (09:06)
== END 2021-10-30 10:10 | disposition home or self-care (01) ==
LOC: SDC 06:12
PROVIDERS: ATTEND Internal Medicine Gastroenterology
PROC: 0DB78ZX Excision of Stomach, Pylorus, Via Natural or Artificial Opening Endoscopic, Diagnostic (ICD-10-PCS; principal; 2021-10-30)
DX: K29.50 Unspecified chronic gastritis without bleeding (principal); K31.89 Other diseases of stomach and duodenum; K31.A11 Gastric intestinal metaplasia without dysplasia, involving the antrum; K25.7 Chronic gastric ulcer without hemorrhage or perforation; E11.9 Type 2 diabetes mellitus without complications; Z79.4 Long term (current) use of insulin; Z79.899 Other long term (current) drug therapy; Z98.84 Bariatric surgery status
CPT/HCPCS: 88305; 88342; J2704

== ENCOUNTER 2021-11-17 14:03 | Outpatient (CLI) | payer MEDICARE, MEDICAID | END 2021-11-17 14:04 | disposition home or self-care (01) | LOC: LABBT 14:03 | PROVIDERS: ATTEND Internal Medicine Gastroenterology | DX: Z20.822 Contact with and (suspected) exposure to COVID-19 (principal) | CPT/HCPCS: 87811 ==

== ENCOUNTER 2021-11-21 08:41 | Outpatient (CLI) | payer MEDICARE, MEDICAID | END 2021-11-21 08:42 | disposition home or self-care (01) | LOC: RAD 08:41 | PROVIDERS: ATTEND Internal Medicine Gastroenterology | DX: K27.9 Peptic ulcer, site unspecified, unspecified as acute or chronic, without hemorrhage or perforation (principal); K59.00 Constipation, unspecified | CPT/HCPCS: 74240 ==

== ENCOUNTER 2021-11-21 12:11 | Inpatient (IN) | payer MEDICARE, MEDICAID ==
[2021-11-21 13:18] LABS: Mean Corpuscular HGB CONC 32.4 g/dL (32.0-36.0); Mean Corpuscular Hemoglobin 25.7 pg (27.0-31.0); Mean Corpuscular Volume 79.2 fL (78.0-98.0); Mean Platelet Volume 7.4 fL (7.4-10.4); Platelet Count 282 thou/uL (130-400); RBC Distribution Width 16.9 % (11.5-14.5); Red Blood Cell (RBC) Count 3.49 mill/uL (4.70-6.10)
[2021-11-21 13:38] LABS: ALT (SGPT) Less than 7 U/L (8-55); AST (SGOT) 10 U/L (5-34); Albumin 3.7 g/dL (3.4-4.8); Alkaline Phosphatase 130 U/L (40-110); Anion Gap 15 mmol/L (10-20); BUN (Urea Nitrogen) 15 mg/dL (8.4-25.7); Bilirubin, Total 0.5 mg/dL (0.2-1.2); Calc. Creatinine Clearance 0 mL/min (70-130); Calcium 9.6 mg/dL (7.8-10.44); Carbon Dioxide 30 mmol/L (23-31); Chloride 99 mmol/L (98-107); Estimated GFR 98; Globulin 2.7 g/dL (2.4-3.5); Glucose 147 mg/dL (83-110); Potassium 4.3 mmol/L (3.5-5.1); Protein, Total 6.4 g/dL (5.8-8.1); Sodium 140 mmol/L (136-145)
[2021-11-21 14:10] LABS: Anisocytosis SLIGHT = 6-15 cells (100X) (0-5/hpf); Band 6 % (5-11); Eosinophils 1 % (0-10); Hypochromia SLIGHT = 6-15 cells (100X) (0-5/hpf); Lymphocytes 35 % (21-51); MDiff Complete? YES; Monocytes 13 % (0-10); Neutrophil 44 % (42-75); Ovalocytes SLIGHT = 2-5 cells (100X) (0-1/hpf); Platelet Morphology Comment Appears Adequate; Polychromasia SLIGHT = 2-3 cells (100X) (0-2/hpf); Schistocytes SLIGHT = 2-5 cells (100X) (0-1/hpf)
[2021-11-21] MEDS ORDERED: Guaifenesin DM 100-10/5 ML UDCUP PO PRN (15:24)
[2021-11-21] MEDS ORDERED: Senokot S 8.6-50 MG TAB PO PRN (15:24)
[2021-11-21] MEDS ORDERED: Ondansetron PF 4 MG/2 ML Vial IVP PRN (15:24)
[2021-11-21 16:40] LABS: Troponin I Less than 0.010 ng/mL (< 0.028)
[2021-11-21 20:43] LABS: Troponin I 0.037 ng/mL (< 0.028)
[2021-11-21] MEDS ORDERED: Famotidine/PF 20 mg/2ml Vial SLOW IVP SCH (21:00)
[2021-11-22 04:18] LABS: #Lymphocytes 0.9 thou/uL (1.20-3.40); #Monocytes 0.5 thou/uL (0.11-0.59); #Neutrophils 2.9 thou/uL (1.40-6.50); %Basophils 0.2 % (0.0-1.0); %Eosinophils 0.9 % (0.0-10.0); %Lymphocytes 20.8 % (21.0-51.0); %Monocytes 12.2 % (0.0-10.0); %Neutrophils 65.9 % (42.0-75.0); Hemoglobin 7.1 g/dL (14.0-18.0); Mean Corpuscular HGB CONC 33.1 g/dL (32.0-36.0); Mean Corpuscular Hemoglobin 26.4 pg (27.0-31.0); Mean Corpuscular Volume 79.6 fL (78.0-98.0); Mean Platelet Volume 7.9 fL (7.4-10.4); Platelet Count 194 thou/uL (130-400); RBC Distribution Width 16.8 % (11.5-14.5); Red Blood Cell (RBC) Count 2.69 mill/uL (4.70-6.10); White Blood Cell (WBC) Count 4.4 thou/uL (4.8-10.8)
[2021-11-22 04:58] LABS: Anion Gap 14 mmol/L (10-20); BUN (Urea Nitrogen) 12 mg/dL (8.4-25.7); Calc. Creatinine Clearance 83 mL/min (70-130); Carbon Dioxide 25 mmol/L (23-31); Chloride 102 mmol/L (98-107); Estimated GFR 104; Glucose 92 mg/dL (83-110); Potassium 3.5 mmol/L (3.5-5.1); Sodium 137 mmol/L (136-145)
[2021-11-22] MEDS ORDERED: Pantoprazole 40 MG VIAL IVP SCH (06:15)
[2021-11-22] MEDS ORDERED: Enoxaparin Sodium 40 MG/0.4 ML SYRINGE SC SCH (09:00)
[2021-11-22] MEDS: Sodium Chloride 0.9% 1,000 ML IV SCH (10:49)
[2021-11-22 19:37] LABS: Hemoglobin 9.1 g/dL (14.0-18.0)
[2021-11-22] MEDS: Pantoprazole 40 MG VIAL IVP SCH (20:22)
[2021-11-23 04:54] LABS: #Eosinphils 0.1 thou/uL (0.0-0.7); #Lymphocytes 1.4 thou/uL (1.20-3.40); #Monocytes 0.5 thou/uL (0.11-0.59); #Neutrophils 1.4 thou/uL (1.40-6.50); %Basophils 0.3 % (0.0-1.0); %Eosinophils 2.7 % (0.0-10.0); %Lymphocytes 41.2 % (21.0-51.0); %Monocytes 14.6 % (0.0-10.0); %Neutrophils 41.3 % (42.0-75.0); Hemoglobin 8.8 g/dL (14.0-18.0); Mean Corpuscular HGB CONC 33.2 g/dL (32.0-36.0); Mean Corpuscular Hemoglobin 27.6 pg (27.0-31.0); Mean Platelet Volume 7.9 fL (7.4-10.4); Platelet Count 185 thou/uL (130-400); RBC Distribution Width 17.6 % (11.5-14.5); Red Blood Cell (RBC) Count 3.18 mill/uL (4.70-6.10); White Blood Cell (WBC) Count 3.3 thou/uL (4.8-10.8)
[2021-11-23 05:12] LABS: Anion Gap 12 mmol/L (10-20); BUN (Urea Nitrogen) 6 mg/dL (8.4-25.7); Calc. Creatinine Clearance 96 mL/min (70-130); Calcium 7.7 mg/dL (7.8-10.44); Carbon Dioxide 22 mmol/L (23-31); Chloride 107 mmol/L (98-107); Estimated GFR 108; Glucose 79 mg/dL (83-110); Potassium 3.6 mmol/L (3.5-5.1); Sodium 137 mmol/L (136-145)
[2021-11-23] MEDS: Sodium Chloride 0.9% 1,000 ML IV SCH (05:20)
[2021-11-23] MEDS: Multivitamin W/ Minerals 1 TAB PO SCH (09:33)
[2021-11-23] MEDS: Tamsulosin HCl 0.4 MG CAP PO SCH (09:33)
[2021-11-23] MEDS: Sucralfate 1 GM TAB PO SCH ×2 (09:33→17:37)
[2021-11-23] MEDS: Pantoprazole 40 MG VIAL IVP SCH ×2 (09:33→21:20)
[2021-11-24] MEDS: Sodium Chloride 0.9% 1,000 ML IV SCH ×2 (00:47→21:06)
[2021-11-24] MEDS: Sucralfate 1 GM TAB PO SCH ×2 (09:04→17:50)
[2021-11-24] MEDS: Tamsulosin HCl 0.4 MG CAP PO SCH (09:04)
[2021-11-24] MEDS: Pantoprazole 40 MG VIAL IVP SCH ×2 (09:05→21:04)
[2021-11-24] MEDS: Multivitamin W/ Minerals 1 TAB PO SCH (09:05)
[2021-11-25 04:54] LABS: Anion Gap 11 mmol/L (10-20); BUN (Urea Nitrogen) Less than 4 mg/dL (8.4-25.7); Calc. Creatinine Clearance 83 mL/min (70-130); Calcium 7.7 mg/dL (7.8-10.44); Carbon Dioxide 23 mmol/L (23-31); Chloride 109 mmol/L (98-107); Estimated GFR 104; Glucose 87 mg/dL (83-110); Potassium 3.7 mmol/L (3.5-5.1); Sodium 139 mmol/L (136-145)
[2021-11-25 05:05] LABS: Band 4 % (5-11); Eosinophils 2 % (0-10); Hemoglobin 9.2 g/dL (14.0-18.0); Hypochromia SLIGHT = 6-15 cells (100X) (0-5/hpf); Lymphocytes 40 % (21-51); MDiff Complete? YES; Mean Corpuscular Hemoglobin 27.1 pg (27.0-31.0); Mean Corpuscular Volume 84.7 fL (78.0-98.0); Mean Platelet Volume 7.7 fL (7.4-10.4); Monocytes 8 % (0-10); Neutrophil 46 % (42-75); Platelet Count 204 thou/uL (130-400); Platelet Morphology Comment Appears Adequate; RBC Distribution Width 18.4 % (11.5-14.5); White Blood Cell (WBC) Count 2.8 thou/uL (4.8-10.8)
[2021-11-25] MEDS: Pantoprazole 40 MG VIAL IVP SCH ×2 (09:09→21:19)
[2021-11-25] MEDS: Multivitamin W/ Minerals 1 TAB PO SCH (09:09)
[2021-11-25] MEDS: Sucralfate 1 GM TAB PO SCH ×2 (09:09→17:28)
[2021-11-25] MEDS: Tamsulosin HCl 0.4 MG CAP PO SCH (09:09)
[2021-11-25 10:16] LABS: % Free PSA 13.3 % (.); Total PSA 0.6 ng/mL (0.0-4.0)
[2021-11-25] MEDS ORDERED: Polyethylene Glycol 3350 17 GM Packet PO SCH (16:30)
[2021-11-25] MEDS: Sodium Chloride 0.9% 1,000 ML IV SCH (17:28)
[2021-11-26 03:10] LABS: Hemoglobin 9.9 g/dL (14.0-18.0); Mean Corpuscular HGB CONC 33.5 g/dL (32.0-36.0); Mean Corpuscular Hemoglobin 28.6 pg (27.0-31.0); Mean Corpuscular Volume 85.4 fL (78.0-98.0); Mean Platelet Volume 7.6 fL (7.4-10.4); Platelet Count 212 thou/uL (130-400); RBC Distribution Width 18.5 % (11.5-14.5); Red Blood Cell (RBC) Count 3.47 mill/uL (4.70-6.10); White Blood Cell (WBC) Count 2.6 thou/uL (4.8-10.8)
[2021-11-26 03:31] LABS: ALT (SGPT) 7 U/L (8-55); AST (SGOT) 14 U/L (5-34); Albumin 2.6 g/dL (3.4-4.8); Alkaline Phosphatase 94 U/L (40-110); Anion Gap 12 mmol/L (10-20); BUN (Urea Nitrogen) 5 mg/dL (8.4-25.7); Bilirubin, Total 0.7 mg/dL (0.2-1.2); Calc. Creatinine Clearance 67 mL/min (70-130); Carbon Dioxide 21 mmol/L (23-31); Chloride 111 mmol/L (98-107); Estimated GFR 97; Globulin 2.2 g/dL (2.4-3.5); Glucose 93 mg/dL (83-110); Potassium 3.9 mmol/L (3.5-5.1); Protein, Total 4.8 g/dL (5.8-8.1); Sodium 140 mmol/L (136-145)
[2021-11-26 03:44] LABS: Band 3 % (5-11); Eosinophils 3 % (0-10); Lymphocytes 67 % (21-51); MDiff Complete? YES; Monocytes 8 % (0-10); Neutrophil 17 % (42-75); Platelet Morphology Comment Appears Adequate; RBC Morphology Normal; Reactive Lymphocytes 1 % (0-10)
[2021-11-26] MEDS: Pantoprazole 40 MG VIAL IVP SCH ×2 (09:15→20:24)
[2021-11-26] MEDS: Multivitamin W/ Minerals 1 TAB PO SCH (09:15)
[2021-11-26] MEDS: Tamsulosin HCl 0.4 MG CAP PO SCH (09:15)
[2021-11-26] MEDS: Sucralfate 1 GM TAB PO SCH ×2 (09:15→17:54)
[2021-11-26] MEDS: Polyethylene Glycol 3350 17 GM Packet PO SCH (09:16)
[2021-11-26] MEDS ORDERED: Fleet Enema 133 ML BOT PR SCH (09:45)
[2021-11-26] MEDS: Sodium Chloride 0.9% 1,000 ML IV SCH (13:30)
[2021-11-27 06:31] LABS: Anisocytosis SLIGHT = 6-15 cells (100X) (0-5/hpf); Band 1 % (5-11); Eosinophils 1 % (0-10); Hemoglobin 9.1 g/dL (14.0-18.0); Lymphocytes 73 % (21-51); MDiff Complete? YES; Mean Corpuscular HGB CONC 32.2 g/dL (32.0-36.0); Mean Corpuscular Hemoglobin 27.4 pg (27.0-31.0); Mean Corpuscular Volume 85.1 fL (78.0-98.0); Mean Platelet Volume 7.4 fL (7.4-10.4); Monocytes 8 % (0-10); Neutrophil 17 % (42-75); Platelet Count 209 thou/uL (130-400); RBC Distribution Width 18.6 % (11.5-14.5); Red Blood Cell (RBC) Count 3.32 mill/uL (4.70-6.10); White Blood Cell (WBC) Count 2.5 thou/uL (4.8-10.8)
[2021-11-27] MEDS: Pantoprazole 40 MG VIAL IVP SCH ×2 (09:26→19:49)
[2021-11-27] MEDS ORDERED: fentaNYL Citrate/PF 100 MCG/2 ML SYRINGE ONE (12:31)
[2021-11-27] MEDS ORDERED: SUGAMMADEX SODIUM 200 MG/2 ML VIAL ONE (12:36)
[2021-11-27] MEDS ORDERED: Sodium Chloride 0.9% 100 ML ONE (12:37)
[2021-11-27] MEDS ORDERED: CEFAZOLIN 2 GM VIAL ONE (12:37)
[2021-11-27] MEDS ORDERED: Phenylephrine 10 MG/ML VIAL ONE (12:47)
[2021-11-27] MEDS ORDERED: PROPOFOL 200 MG/20 ML VIAL ONE (12:47)
[2021-11-27] MEDS ORDERED: Ondansetron PF 4 MG/2 ML Vial ONE (12:47)
[2021-11-27] MEDS ORDERED: Bupivacaine HCl 0.5%/Epinephrine 1:200,000/PF 30 ml Vial ONE (12:47)
[2021-11-27] MEDS ORDERED: Rocuronium Bromide 10 MG/ML (10ML VIAL) ONE (12:47)
[2021-11-27] MEDS ORDERED: Lidocaine 1% MPF 2 ML VIAL ONE (12:47)
[2021-11-27] MEDS ORDERED: Ondansetron HCl/PF 4 MG/2 ML Vial IVP PRN (14:20)
[2021-11-27] MEDS ORDERED: Bupivacaine/Epinephrine 0.25% 30 ML VIAL ONE (14:28)
[2021-11-27] MEDS: Multivitamin W/ Minerals 1 TAB PO SCH (14:45)
[2021-11-27] MEDS: Polyethylene Glycol 3350 17 GM Packet PO SCH (14:45)
[2021-11-27] MEDS: Tamsulosin HCl 0.4 MG CAP PO SCH (14:45)
[2021-11-27] MEDS: Sucralfate 1 GM TAB PO SCH ×2 (14:45→18:31)
[2021-11-27] MEDS: Sodium Chloride 0.9% 1,000 ML IV SCH (14:46)
[2021-11-27] MEDS: Morphine 2 MG/ML VIAL SLOW IVP PRN ×2 (16:22→19:49)
[2021-11-27] MEDS: Lactated Ringer's 1,000 ML IV SCH ×2 (18:32→22:59)
[2021-11-28] MEDS: Morphine 2 MG/ML VIAL SLOW IVP PRN ×2 (02:59→10:24)
[2021-11-28 04:48] LABS: #Lymphocytes 0.9 thou/uL (1.20-3.40); #Monocytes 0.7 thou/uL (0.11-0.59); %Basophils 0.4 % (0.0-1.0); %Eosinophils 0.5 % (0.0-10.0); %Lymphocytes 18.8 % (21.0-51.0); %Monocytes 14.1 % (0.0-10.0); %Neutrophils 66.1 % (42.0-75.0); Mean Corpuscular HGB CONC 32.6 g/dL (32.0-36.0); Mean Corpuscular Hemoglobin 27.4 pg (27.0-31.0); Mean Platelet Volume 8.5 fL (7.4-10.4); Platelet Count 274 thou/uL (130-400); RBC Distribution Width 19.4 % (11.5-14.5); Red Blood Cell (RBC) Count 4.02 mill/uL (4.70-6.10); White Blood Cell (WBC) Count 4.6 thou/uL (4.8-10.8)
[2021-11-28 04:50] LABS: Anion Gap 12 mmol/L (10-20); BUN (Urea Nitrogen) 5 mg/dL (8.4-25.7); Calc. Creatinine Clearance 83 mL/min (70-130); Calcium 7.8 mg/dL (7.8-10.44); Carbon Dioxide 25 mmol/L (23-31); Chloride 106 mmol/L (98-107); Estimated GFR 101; Glucose 138 mg/dL (83-110); Potassium 4.1 mmol/L (3.5-5.1); Sodium 139 mmol/L (136-145)
[2021-11-28 08:39] VITALS: BMI 19.5
[2021-11-28] MEDS: Multivitamin W/ Minerals 1 TAB PO SCH (10:25)
[2021-11-28] MEDS: Tamsulosin HCl 0.4 MG CAP PO SCH (10:26)
[2021-11-28] MEDS: Polyethylene Glycol 3350 17 GM Packet PO SCH (10:26)
[2021-11-28] MEDS: Pantoprazole 40 MG VIAL IVP SCH ×2 (10:26→20:40)
[2021-11-28] MEDS: Sucralfate 1 GM TAB PO SCH ×2 (10:26→19:21)
[2021-11-28] MEDS: Lactated Ringer's 1,000 ML IV SCH (12:27)
[2021-11-29 05:03] LABS: Band 9 % (5-11); Eosinophils 2 % (0-10); Lymphocytes 20 % (21-51); MDiff Complete? YES; Mean Corpuscular HGB CONC 32.7 g/dL (32.0-36.0); Mean Corpuscular Volume 85.4 fL (78.0-98.0); Mean Platelet Volume 7.5 fL (7.4-10.4); Monocytes 17 % (0-10); Neutrophil 51 % (42-75); Platelet Count 236 thou/uL (130-400); RBC Distribution Width 19.5 % (11.5-14.5); Red Blood Cell (RBC) Count 3.57 mill/uL (4.70-6.10); White Blood Cell (WBC) Count 3.7 thou/uL (4.8-10.8)
[2021-11-29] MEDS: Multivitamin W/ Minerals 1 TAB PO SCH (09:59)
[2021-11-29] MEDS: Tamsulosin HCl 0.4 MG CAP PO SCH (09:59)
[2021-11-29] MEDS: Polyethylene Glycol 3350 17 GM Packet PO SCH (09:59)
[2021-11-29] MEDS: Sucralfate 1 GM TAB PO SCH ×2 (10:00→19:42)
[2021-11-29] MEDS: Pantoprazole 40 MG VIAL IVP SCH ×2 (10:00→21:29)
[2021-11-29] MEDS: Lactated Ringer's 1,000 ML IV SCH (15:15)
[2021-11-30] MEDS: Lactated Ringer's 1,000 ML IV SCH ×3 (04:06→17:26)
[2021-11-30 05:02] LABS: Anion Gap 13 mmol/L (10-20); BUN (Urea Nitrogen) 4 mg/dL (8.4-25.7); Calc. Creatinine Clearance 102 mL/min (70-130); Calcium 7.8 mg/dL (7.8-10.44); Carbon Dioxide 23 mmol/L (23-31); Chloride 105 mmol/L (98-107); Estimated GFR 107; Glucose 105 mg/dL (83-110); Potassium 3.5 mmol/L (3.5-5.1); Sodium 137 mmol/L (136-145)
[2021-11-30 05:30] LABS: #Eosinphils 0.1 thou/uL (0.0-0.7); #Lymphocytes 1.3 thou/uL (1.20-3.40); #Monocytes 0.5 thou/uL (0.11-0.59); #Neutrophils 1.5 thou/uL (1.40-6.50); %Basophils 0.2 % (0.0-1.0); %Eosinophils 3.7 % (0.0-10.0); %Lymphocytes 37.4 % (21.0-51.0); %Monocytes 14.4 % (0.0-10.0); %Neutrophils 44.3 % (42.0-75.0); Elliptocytes SLIGHT = 2-5 cells (100X) (0-1/hpf); Hemoglobin 9.4 g/dL (14.0-18.0); MDiff Complete? YES; Mean Corpuscular HGB CONC 33.8 g/dL (32.0-36.0); Mean Corpuscular Hemoglobin 28.6 pg (27.0-31.0); Mean Corpuscular Volume 84.4 fL (78.0-98.0); Mean Platelet Volume 7.6 fL (7.4-10.4); Platelet Count 230 thou/uL (130-400); RBC Distribution Width 19.4 % (11.5-14.5); White Blood Cell (WBC) Count 3.4 thou/uL (4.8-10.8)
[2021-11-30] MEDS: Pantoprazole 40 MG VIAL IVP SCH ×2 (09:04→20:22)
[2021-11-30] MEDS: Sucralfate 1 GM TAB PO SCH ×2 (09:04→17:24)
[2021-11-30] MEDS: Polyethylene Glycol 3350 17 GM Packet PO SCH (09:04)
[2021-11-30] MEDS: Tamsulosin HCl 0.4 MG CAP PO SCH (09:04)
[2021-11-30] MEDS: Multivitamin W/ Minerals 1 TAB PO SCH (09:04)
[2021-12-01 07:40] LABS: Anion Gap 11 mmol/L (10-20); BUN (Urea Nitrogen) Less than 4 mg/dL (8.4-25.7); Calc. Creatinine Clearance 109 mL/min (70-130); Calcium 7.5 mg/dL (7.8-10.44); Carbon Dioxide 23 mmol/L (23-31); Chloride 105 mmol/L (98-107); Estimated GFR 109; Glucose 86 mg/dL (83-110); Potassium 3.4 mmol/L (3.5-5.1); Sodium 136 mmol/L (136-145)
[2021-12-01 08:04] LABS: #Eosinphils 0.1 thou/uL (0.0-0.7); #Lymphocytes 1.3 thou/uL (1.20-3.40); #Monocytes 0.3 thou/uL (0.11-0.59); #Neutrophils 1.1 thou/uL (1.40-6.50); %Basophils 0.4 % (0.0-1.0); %Eosinophils 3.4 % (0.0-10.0); %Lymphocytes 45.8 % (21.0-51.0); %Monocytes 11.9 % (0.0-10.0); %Neutrophils 38.5 % (42.0-75.0); Hemoglobin 8.8 g/dL (14.0-18.0); Mean Corpuscular HGB CONC 32.9 g/dL (32.0-36.0); Mean Corpuscular Hemoglobin 27.7 pg (27.0-31.0); Mean Corpuscular Volume 84.2 fL (78.0-98.0); Mean Platelet Volume 7.6 fL (7.4-10.4); Platelet Count 274 thou/uL (130-400); RBC Distribution Width 19.5 % (11.5-14.5); Red Blood Cell (RBC) Count 3.18 mill/uL (4.70-6.10); White Blood Cell (WBC) Count 2.8 thou/uL (4.8-10.8)
[2021-12-01 08:05] LABS: Hypochromia SLIGHT = 6-15 cells (100X) (0-5/hpf); MDiff Complete? YES; Platelet Morphology Comment Appears Adequate; Polychromasia SLIGHT = 2-3 cells (100X) (0-2/hpf)
[2021-12-01] MEDS: Tamsulosin HCl 0.4 MG CAP PO SCH (08:23)
[2021-12-01] MEDS: Sucralfate 1 GM TAB PO SCH ×2 (08:23→17:18)
[2021-12-01] MEDS: Lactated Ringer's 1,000 ML IV SCH ×2 (08:23→10:15)
[2021-12-01] MEDS: Multivitamin W/ Minerals 1 TAB PO SCH (08:23)
[2021-12-01] MEDS: Pantoprazole 40 MG VIAL IVP SCH ×2 (08:23→21:45)
[2021-12-01] MEDS: Polyethylene Glycol 3350 17 GM Packet PO SCH ×2 (09:40→09:58)
[2021-12-01] MEDS ORDERED: Potassium Chloride 20 MEQ TAB PO SCH (10:15)
[2021-12-01] MEDS ORDERED: Bisacodyl 10 MG SUPP PR SCH (10:30)
[2021-12-01] MEDS ORDERED: Dextrose 50% Abboject 50 ML SYRINGE SLOW IVP PRN (11:35)
[2021-12-01] MEDS ORDERED: Dextrose 5% in Water 1,000 ML IV PRN (11:35)
[2021-12-01] MEDS ORDERED: HumaLOG 300 UNITS/3 ML VIAL SC PRN (11:35)
[2021-12-02 06:57] LABS: #Eosinphils 0.1 thou/uL (0.0-0.7); #Lymphocytes 1.2 thou/uL (1.20-3.40); #Monocytes 0.4 thou/uL (0.11-0.59); #Neutrophils 1.1 thou/uL (1.40-6.50); %Basophils 0.3 % (0.0-1.0); %Eosinophils 4.3 % (0.0-10.0); %Lymphocytes 42.7 % (21.0-51.0); %Monocytes 14.4 % (0.0-10.0); %Neutrophils 38.3 % (42.0-75.0); Hemoglobin 9.6 g/dL (14.0-18.0); Mean Corpuscular HGB CONC 32.5 g/dL (32.0-36.0); Mean Corpuscular Hemoglobin 27.4 pg (27.0-31.0); Mean Corpuscular Volume 84.2 fL (78.0-98.0); Mean Platelet Volume 7.5 fL (7.4-10.4); Platelet Count 319 thou/uL (130-400); RBC Distribution Width 19.5 % (11.5-14.5); White Blood Cell (WBC) Count 2.9 thou/uL (4.8-10.8)
[2021-12-02 07:06] LABS: Phosphorus 3.2 mg/dL (2.3-4.7)
[2021-12-02 07:08] LABS: Anion Gap 12 mmol/L (10-20); BUN (Urea Nitrogen) Less than 4 mg/dL (8.4-25.7); Calc. Creatinine Clearance 100 mL/min (70-130); Calcium 7.7 mg/dL (7.8-10.44); Carbon Dioxide 23 mmol/L (23-31); Chloride 105 mmol/L (98-107); Estimated GFR 106; Glucose 99 mg/dL (83-110); Magnesium 1.4 mg/dL (1.6-2.6); Potassium 3.7 mmol/L (3.5-5.1); Sodium 136 mmol/L (136-145)
[2021-12-02 07:46] VITALS: BP 104/66; TEMP 97.7
[2021-12-02] MEDS ORDERED: Magnesium Sulfate In Water 4 GM in Premix Bag 1 BAG IVPB SCH (08:00)
[2021-12-02] MEDS: Pantoprazole 40 MG VIAL IVP SCH (09:17)
[2021-12-02] MEDS: Sucralfate 1 GM TAB PO SCH (09:17)
[2021-12-02] MEDS: Multivitamin W/ Minerals 1 TAB PO SCH (09:17)
[2021-12-02] MEDS: Tamsulosin HCl 0.4 MG CAP PO SCH (09:17)
[2021-12-02] MEDS: Polyethylene Glycol 3350 17 GM Packet PO SCH (09:17)
[2021-12-02] MEDS: Lactated Ringer's 1,000 ML IV SCH (12:46)
== END 2021-12-02 13:50 | disposition home or self-care (01) | DRG 326 ==
LOC: ERS 12:11 → 2NO 16:43 → T4-A 11-30 14:10
PROVIDERS: ADMIT Family Medicine; ATTEND Family Medicine
PROC: 30233N1 Transfusion of Nonautologous Red Blood Cells into Peripheral Vein, Percutaneous Approach (ICD-10-PCS; 2021-11-22)
PROC: 0D160ZA Bypass Stomach to Jejunum, Open Approach (ICD-10-PCS; principal; 2021-11-27)
PROC: 0DB80ZZ Excision of Small Intestine, Open Approach (ICD-10-PCS; 2021-11-27)
DX: K31.1 Adult hypertrophic pyloric stenosis (principal); E43 Unspecified severe protein-calorie malnutrition; Z68.1 Body mass index [BMI] 19.9 or less, adult; K92.1 Melena; R64 Cachexia; I47.2 Ventricular tachycardia; Z20.822 Contact with and (suspected) exposure to COVID-19; E11.40 Type 2 diabetes mellitus with diabetic neuropathy, unspecified; K27.9 Peptic ulcer, site unspecified, unspecified as acute or chronic, without hemorrhage or perforation; N28.89 Other specified disorders of kidney and ureter; I95.1 Orthostatic hypotension; K40.90 Unilateral inguinal hernia, without obstruction or gangrene, not specified as recurrent; H26.9 Unspecified cataract; R68.81 Early satiety; E78.5 Hyperlipidemia, unspecified; N40.0 Benign prostatic hyperplasia without lower urinary tract symptoms; E86.9 Volume depletion, unspecified; E87.6 Hypokalemia; Z98.84 Bariatric surgery status; Z90.49 Acquired absence of other specified parts of digestive tract; Z79.4 Long term (current) use of insulin; Z79.899 Other long term (current) drug therapy; Z98.890 Other specified postprocedural states; Z87.891 Personal history of nicotine dependence
CPT/HCPCS: 36415; 36416; 36430; 71045; 74018; 74177; 76770; 80048; 80053; 82378; 82941; 83735; 84100; 84153; 84154; 84484; 85025; 86850; 86900; 86901; 88307; 93005; 96360; A4649; C1776; C9113; J0690; J2270; J2370; J2405; J2704; J3475; J3490; J7050; J7120; P9016; S0028; U0003; U0005

== ENCOUNTER 2022-08-17 09:05 | Outpatient (CLI) | payer MEDICARE, MEDICAID ==
[~2022-08-17 09:05] MED LIST changes: +Iopamidol 370 76% 100 ML VIAL ONE; -Iopamidol-370 76% 500 ML 1 ML ONE
== END 2022-08-17 09:06 | disposition home or self-care (01) ==
LOC: BICCT 09:05
PROVIDERS: ATTEND Urology
DX: D41.01 Neoplasm of uncertain behavior of right kidney (principal); N28.89 Other specified disorders of kidney and ureter
CPT/HCPCS: 74170; 82565

== ENCOUNTER 2023-05-06 12:10 | Emergency (ER) | payer MEDICARE, MEDICAID ==
[2023-05-06 13:08] LABS: #Eosinphils 0.2 thou/uL (0.0-0.7); #Monocytes 0.5 thou/uL (0.11-0.59); #Neutrophils 2.3 thou/uL (1.40-6.50); %Basophils 0.6 % (0.0-1.0); %Lymphocytes 40.4 % (21.0-51.0); %Monocytes 9.7 % (0.0-10.0); %Neutrophils 46.3 % (42.0-75.0); Hematocrit 41.7 % (42.0-52.0); Hemoglobin 13.8 g/dL (14.0-18.0); Mean Corpuscular HGB CONC 33.1 g/dL (32.0-36.0); Mean Corpuscular Hemoglobin 27.8 pg (27.0-31.0); Mean Corpuscular Volume 84.1 fl (78.0-98.0); Mean Platelet Volume 9.9 fL (7.4-10.4); Platelet Count 201 10x3/uL (130-400); RBC Distribution Width 17.2 % (11.5-14.5); Red Blood Cell (RBC) Count 4.96 mill/uL (4.70-6.10); White Blood Cell (WBC) Count 5.1 10x3/uL (4.8-10.8)
[2023-05-06 13:37] LABS: ALT (SGPT) 20 U/L (8-55); AST (SGOT) 23 U/L (5-34); Albumin 3.5 g/dL (3.4-4.8); Alkaline Phosphatase 94 U/L (40-110); Anion Gap 13 mmol/L (10-20); BUN (Urea Nitrogen) 16 mg/dL (8.4-25.7); Bilirubin, Total 0.8 mg/dL (0.2-1.2); Calc. Creatinine Clearance 0 mL/min (70-130); Carbon Dioxide 23 mmol/L (23-31); Chloride 103 mmol/L (98-107); Estimated GFR 95; Globulin 3.1 g/dL (2.4-3.5); Glucose 153 mg/dL (83-110); Lipase 34 U/L (8-78); Protein, Total 6.6 g/dL (5.8-8.1); Sodium 135 mmol/L (136-145)
[2023-05-06 15:03] LABS: Bacteria/HPF None Seen HPF (None Seen); Bilirubin Negative (Negative); Blood, Urine Negative (Negative); CAUTI Indications for Culture Pelvic or flank pain; Clarity Clear (Clear); Glucose, Urine (Dipstick) Normal (Negative); Ketone, Urine Negative (Negative); Leukocyte Negative Leu/uL (Negative); Nitrite Negative (Negative); Protein, Urine (Dipstick) Negative (Neg-Trace); RBC/HPF 0-3 HPF (0-3); Squamous Epithelial None Seen HPF (0-3); Urobilinogen Normal mg/dL (Less than 2); WBC/HPF 0-3 HPF (0-3); pH, Urine 7.5 (5.0-9.0)
[2023-05-06 15:04] LABS: Specific Gravity, Urine 1.045 (1.002-1.036); Urine Culture Reflex No No
== END 2023-05-06 16:30 | disposition home or self-care (01) ==
LOC: ERS 12:10
DX: K59.00 Constipation, unspecified (principal); J18.1 Lobar pneumonia, unspecified organism; C64.9 Malignant neoplasm of unspecified kidney, except renal pelvis; E11.9 Type 2 diabetes mellitus without complications; Z87.891 Personal history of nicotine dependence; Z48.815 Encounter for surgical aftercare following surgery on the digestive system
CPT/HCPCS: 36415; 71046; 74177; 80053; 81001; 83690; 85025

== ENCOUNTER 2023-09-27 21:32 | Inpatient (IN) | payer MEDICARE, MEDICAID ==
[~2023-09-27 21:32] MED LIST changes: -Iopamidol 370 76% 100 ML VIAL ONE; +Iopamidol-370 76% 500 ML MDV (1 ML CHARGE) ONE
[2023-09-27 22:48] LABS: #Basophils 0.05 10x3/uL (0.0-0.2); %Basophils 0.8 % (0.0-1.0); %Eosinophils 2.4 % (0.0-10.0); %Lymphocytes 15.4 % (21.0-51.0); %Monocytes 15.3 % (0.0-10.0); %Neutrophils 65.6 % (42.0-75.0); Hematocrit 32.9 % (42.0-52.0); Hemoglobin 11.8 g/dL (14.0-18.0); Mean Corpuscular HGB CONC 35.9 g/dL (32.0-36.0); Mean Corpuscular Volume 80.8 fL (78.0-98.0); Mean Platelet Volume 10.4 fL (7.4-10.4); Platelet Count 173 10x3/uL (130-400); RBC Distribution Width 24.7 % (11.5-14.5); Red Blood Cell (RBC) Count 4.07 mill/uL (4.70-6.10)
[2023-09-27 22:53] LABS: ALT (SGPT) 761 U/L (8-55); AST (SGOT) 975 U/L (5-34); Albumin 2.2 g/dL (3.4-4.8); Alkaline Phosphatase 153 U/L (40-110); Anion Gap 16 mmol/L (10-20); BUN (Urea Nitrogen) 8 mg/dL (8.4-25.7); Bilirubin, Total 21.3 mg/dL (0.2-1.2); Calc. Creatinine Clearance 0 mL/min (70-130); Calcium 8.2 mg/dL (7.8-10.44); Carbon Dioxide 16 mmol/L (23-31); Chloride 109 mmol/L (98-107); Estimated GFR 97; Globulin 2.2 g/dL (2.4-3.5); Glucose 165 mg/dL (83-110); Lipase 13 U/L (8-78); Magnesium 1.2 mg/dL (1.6-2.6); Potassium 3.4 mmol/L (3.5-5.1); Protein, Total 4.4 g/dL (5.8-8.1); Sodium 138 mmol/L (136-145)
[2023-09-27 22:54] LABS: INR-International Normal Ratio 3.4; Prothrombin Time 34.6 sec (12.0-14.7)
[2023-09-27 22:58] LABS: Troponin I Less than 0.010 ng/mL (< 0.028)
[2023-09-27 23:12] LABS: Anisocytosis MODERATE=16-30 cells HPF (0-5); Burr Cells MODERATE= 6-15 cells HPF (0-1); Macrocytosis MODERATE=16-30 cells HPF (0-5); Ovalocytes SLIGHT = 2-5 cells HPF (0-1); Platelet Adequacy Comment Platelets Normal; Poikilocytosis SLIGHT = 6-15 cells HPF (0-5); Polychromasia SLIGHT = 2-3 cells HPF (0-2); Target Cells MODERATE= 6-15 cells HPF (0-1)
[2023-09-28] MEDS ORDERED: Sodium Chloride 0.9% 100 ML ONE (00:44)
[2023-09-28] MEDS ORDERED: Piperacillin/Tazobactam 4.5 GM VIAL ONE (00:44)
[2023-09-28] MEDS ORDERED: Magnesium 2 GM/50 ML BAG (IN WATER) ONE (00:44)
[2023-09-28 02:17] LABS: Lactic Acid 4.2 mmol/L (0.5-2.2)
[2023-09-28 04:30] LABS: Bacteria/HPF None Seen HPF (None Seen); Bilirubin 3+ (Negative); Blood, Urine Negative (Negative); CAUTI Indications for Culture Dysuria,urgency,freq; Clarity Clear (Clear); Glucose, Urine (Dipstick) Normal (Negative); Ketone, Urine Negative (Negative); Leukocyte Negative Leu/uL (Negative); Nitrite Negative (Negative); Protein, Urine (Dipstick) Negative (Neg-Trace); RBC/HPF 0-3 HPF (0-3); Specific Gravity, Urine 1.033 (1.002-1.036); Squamous Epithelial None Seen HPF (0-3); Urobilinogen Normal mg/dL (Less than 2); WBC/HPF 0-3 HPF (0-3); pH, Urine 7.5 (5.0-9.0)
[2023-09-28 04:38] LABS: Urine Culture Reflex No No
[2023-09-28 05:22] LABS: Acetaminophen Less than 10 mcg/mL (10.0-30.0); Alcohol Less than 10.0 mg/dL (Less than 10); Salicylate Less than 8.0 mg/dL (15.0-30.0)
[2023-09-28 05:44] LABS: HBsAg Index 0.31 S/CO (0-0.99); Hep A IgM AB NONREACTIVE (NonReactive); Hep B Surf Ag NONREACTIVE S/CO (NonReactive); Hep C IgG Ab NONREACTIVE S/CO (NonReactive); Hep C Index 0.09 S/CO (0-0.79); Hepatitis B Core IgM Abs NONREACTIVE S/CO (NonReactive)
[2023-09-28] MEDS ORDERED: Ondansetron ODT 4 MG TAB SL PRN (05:45)
[2023-09-28] MEDS ORDERED: Acetaminophen 325 MG TAB PO PRN (05:45)
[2023-09-28] MEDS ORDERED: Ondansetron PF 4 MG/2 ML Vial IVP PRN (05:45)
[2023-09-28] MEDS: Sodium Chloride 0.9% 1,000 ML IV SCH (06:01)
[2023-09-28 09:09] VITALS: BMI 20.4
[2023-09-28] MEDS ORDERED: Dextrose 50% Abboject 50 ML SYRINGE SLOW IVP PRN (09:58)
[2023-09-28] MEDS ORDERED: Dextrose 5% in Water 1,000 ML IV PRN (09:58)
[2023-09-28] MEDS ORDERED: Glucagon 1 MG/ML KIT IM PRN (09:58)
[2023-09-28 10:40] LABS: #Basophils 0.08 10x3/uL (0.0-0.2); %Basophils 1.4 % (0.0-1.0); %Eosinophils 5.3 % (0.0-10.0); %Lymphocytes 20.9 % (21.0-51.0); %Monocytes 16.9 % (0.0-10.0); %Neutrophils 55.1 % (42.0-75.0); Hematocrit 31.4 % (42.0-52.0); Hemoglobin 11.2 g/dL (14.0-18.0); Mean Corpuscular HGB CONC 35.7 g/dL (32.0-36.0); Mean Corpuscular Hemoglobin 28.9 pg (27.0-31.0); Mean Corpuscular Volume 81.1 fL (78.0-98.0); Mean Platelet Volume 10.4 fL (7.4-10.4); Platelet Count 179 10x3/uL (130-400); RBC Distribution Width 25.1 % (11.5-14.5); Red Blood Cell (RBC) Count 3.87 mill/uL (4.70-6.10)
[2023-09-28 11:00] LABS: Lactic Acid 1.5 mmol/L (0.5-2.2)
[2023-09-28 11:05] LABS: ALT (SGPT) 745 U/L (8-55); AST (SGOT) 994 U/L (5-34); Albumin 2.1 g/dL (3.4-4.8); Alkaline Phosphatase 136 U/L (40-110); Anion Gap 12 mmol/L (10-20); BUN (Urea Nitrogen) 6 mg/dL (8.4-25.7); Bilirubin, Total 20.6 mg/dL (0.2-1.2); Calc. Creatinine Clearance 87 mL/min (70-130); Calcium 7.9 mg/dL (7.8-10.44); Carbon Dioxide 18 mmol/L (23-31); Chloride 112 mmol/L (98-107); Estimated GFR 100; Glucose 116 mg/dL (83-110); Magnesium 1.4 mg/dL (1.6-2.6); Potassium 3.1 mmol/L (3.5-5.1); Protein, Total 4.1 g/dL (5.8-8.1); Sodium 139 mmol/L (136-145)
[2023-09-28 11:28] LABS: Anisocytosis MODERATE=16-30 cells HPF (0-5); Burr Cells MODERATE= 6-15 cells HPF (0-1); Ovalocytes SLIGHT = 2-5 cells HPF (0-1); Platelet Adequacy Comment Platelets Normal; Poikilocytosis MODERATE=16-30 cells HPF (0-5); Polychromasia SLIGHT = 2-3 cells HPF (0-2); Schistocytes SLIGHT = 2-5 cells HPF (0-1); Target Cells MODERATE= 6-15 cells HPF (0-1)
[2023-09-28] MEDS: methylPREDNISolone Sod Succ/PF 125 MG/2 ML VIAL IVP SCH (11:54)
[2023-09-28] MEDS: Magnesium 2 GM/50 ML(in water) 2 GM in Premix 1 BAG IVPB SCH (11:56)
[2023-09-28] MEDS: Albumin 25% 25 GM (100 mL) BOT IVPB SCH (11:58)
[2023-09-28] MEDS: Potassium Chloride 20 MEQ in Premix 1 BAG IVPB SCH (14:43)
[2023-09-28] MEDS: Potassium Chloride 20 MEQ in Lactated Ringer's 1,000 ML IV SCH (14:45)
[2023-09-28] MEDS: Tamsulosin HCl 0.4 MG CAP PO SCH (21:25)
[2023-09-29] MEDS: Lactulose 20 GM (30 mL) UDCUP PO SCH ×2 (00:24→09:05)
[2023-09-29] MEDS: Levothyroxine Sodium 100 MCG TAB PO SCH (05:48)
[2023-09-29] MEDS: Insulin Regular, Human 100 UNIT/ML 10 ML VIAL SC PRN (07:26)
[2023-09-29] MEDS: Pantoprazole 40 MG VIAL IVP SCH (09:05)
[2023-09-29] MEDS: methylPREDNISolone Sod Succ/PF 125 MG/2 ML VIAL IVP SCH (09:05)
[2023-09-29 10:59] LABS: #Basophils Less than 0.03 10x3/uL (0.0-0.2); #Eosinphils Less than 0.03 10x3/uL (0.0-0.7); %Basophils 0.3 % (0.0-1.0); %Lymphocytes 14.3 % (21.0-51.0); %Monocytes 5.9 % (0.0-10.0); %Neutrophils 79.1 % (42.0-75.0); Hematocrit 32.5 % (42.0-52.0); Mean Corpuscular HGB CONC 36.9 g/dL (32.0-36.0); Mean Corpuscular Hemoglobin 28.6 pg (27.0-31.0); Mean Corpuscular Volume 77.6 fL (78.0-98.0); Mean Platelet Volume 10.4 fL (7.4-10.4); Platelet Count 216 10x3/uL (130-400); RBC Distribution Width 25.5 % (11.5-14.5); Red Blood Cell (RBC) Count 4.19 mill/uL (4.70-6.10)
[2023-09-29 11:13] LABS: INR-International Normal Ratio 4.3; Prothrombin Time 41.9 sec (12.0-14.7)
[2023-09-29 11:22] LABS: ALT (SGPT) 585 U/L (8-55); AST (SGOT) 578 U/L (5-34); Albumin 2.4 g/dL (3.4-4.8); Alkaline Phosphatase 127 U/L (40-110); Anion Gap 14 mmol/L (10-20); BUN (Urea Nitrogen) 13 mg/dL (8.4-25.7); Bilirubin, Total 21.2 mg/dL (0.2-1.2); Calc. Creatinine Clearance 69 mL/min (70-130); Calcium 8.3 mg/dL (7.8-10.44); Carbon Dioxide 15 mmol/L (23-31); Chloride 112 mmol/L (98-107); Estimated GFR 94; Globulin 1.9 g/dL (2.4-3.5); Glucose 224 mg/dL (83-110); Potassium 4.2 mmol/L (3.5-5.1); Protein, Total 4.3 g/dL (5.8-8.1); Sodium 137 mmol/L (136-145)
[2023-09-29 11:58] LABS: HBsAg Index 0.29 S/CO (0-0.99); HIV (1/2) Antibody/Antigen NONREACTIVE (NonReactive); HIV 1/2 INDEX 0.05 S/CO (<1.00); Hep B Surf Ag NONREACTIVE S/CO (NonReactive); Hep C IgG Ab NONREACTIVE S/CO (NonReactive); Hep C Index 0.14 S/CO (0-0.79)
[2023-09-29 14:50] LABS: HIV (1/2) Antibody/Antigen NONREACTIVE (NonReactive); HIV 1/2 INDEX 0.04 S/CO (<1.00); Hep C Index 0.11 S/CO (0-0.79)
[2023-09-29 16:21] LABS: Hep B Surf AB REACTIVE (NonReactive); Hep C IgG Ab NONREACTIVE S/CO (NonReactive)
[2023-09-30] MEDS: Lorazepam 2 MG/ML VIAL SLOW IVP SCH ×2 (02:26→12:31)
[2023-09-30 06:37] LABS: ALT (SGPT) 495 U/L (8-55); AST (SGOT) 309 U/L (5-34); Albumin 2.3 g/dL (3.4-4.8); Alkaline Phosphatase 118 U/L (40-110); Anion Gap 16 mmol/L (10-20); BUN (Urea Nitrogen) 14 mg/dL (8.4-25.7); Bilirubin, Total 20.2 mg/dL (0.2-1.2); Calc. Creatinine Clearance 61 mL/min (70-130); Calcium 8.3 mg/dL (7.8-10.44); Carbon Dioxide 14 mmol/L (23-31); Chloride 110 mmol/L (98-107); Estimated GFR 90; Globulin 1.7 g/dL (2.4-3.5); Glucose 284 mg/dL (83-110); Potassium 3.6 mmol/L (3.5-5.1); Sodium 136 mmol/L (136-145)
[2023-09-30 13:25] VITALS: BP 118/79; TEMP 97.5
== END 2023-09-30 14:52 | disposition hospice, home (50) | DRG 441 ==
LOC: ERS 21:32 → ERHOLD 09-28 03:28 → T4-B 09-28 08:59
PROVIDERS: ADMIT Student in an Organized Health Care Education/Training Program; ATTEND Hospitalist
PROC: 30233J1 Transfusion of Nonautologous Serum Albumin into Peripheral Vein, Percutaneous Approach (ICD-10-PCS; principal; 2023-09-28)
DX: K71.10 Toxic liver disease with hepatic necrosis, without coma (principal); E43 Unspecified severe protein-calorie malnutrition; C64.9 Malignant neoplasm of unspecified kidney, except renal pelvis; G93.40 Encephalopathy, unspecified; E11.9 Type 2 diabetes mellitus without complications; E83.42 Hypomagnesemia; E88.09 Other disorders of plasma-protein metabolism, not elsewhere classified; E87.6 Hypokalemia; Z66 Do not resuscitate; Z51.5 Encounter for palliative care; T45.1X5A Adverse effect of antineoplastic and immunosuppressive drugs, initial encounter; K75.4 Autoimmune hepatitis; Z68.20 Body mass index [BMI] 20.0-20.9, adult; Z79.899 Other long term (current) drug therapy; Z92.21 Personal history of antineoplastic chemotherapy; Z79.890 Hormone replacement therapy; Z79.52 Long term (current) use of systemic steroids; Z79.84 Long term (current) use of oral hypoglycemic drugs; Z90.49 Acquired absence of other specified parts of digestive tract
CPT/HCPCS: 36415; 36416; 71045; 74177; 76705; 80053; 80074; 80307; 81001; 82140; 83605; 83690; 83735; 83880; 84443; 84484; 85025; 85610; 85730; 86706; 86803; 87340; 93005; 96365; 96366; 96367; C9113; J1815; J2060; J2543; J2930; J3475; J3480; J3490; J7050; J7120; P9047; Q9967